=== PATIENT | male | born 1945 | race Caucasian/White ===

== ENCOUNTER 2021-04-30 03:39 | Inpatient (IN) | payer MEDICARE ==
[2021-04-30] VITALS (11 sets, daily range): BP systolic 119–159; BP diastolic 59–102
[~2021-04-30] VITALS: Ht 177.8 cm; Wt 93.2 kg
[~2021-04-30 03:39] MED LIST: ASPI-1265 PO; CA C1TAB86 PO; CHOL100046 PO; COLC0.6T72 PO; GABA300C PO; LOP25T PO; MULT-620 PO; SAW1CAPS5 PO
[2021-04-30] MEDS ORDERED: ondansetron 4mg rapidly disintigrating tab PO STA (04:00)
[2021-04-30 04:24] LABS: BASOPHILS # (AUTO) 0.1 X10'3 (0-0.2); BASOPHILS % (AUTO) 0.6 % (0-1); EOSINOPHILS % (AUTO) 0.1 % (0-6); HEMATOCRIT 46.4 % (42.0-52.0); HEMOGLOBIN 15.6 g/dl (14.0-17.9); LYMPHOCYTES # (AUTO) 1.7 X10'3 (1.1-4.8); LYMPHOCYTES % (AUTO) 9.7 % (21-51); MEAN CORPUSCULAR HEMOGLOBIN 30.4 PG (27.0-31.0); MEAN CORPUSCULAR HGB CONC 33.6 g/dL (33.0-36.5); MEAN CORPUSCULAR VOLUME 90.6 FL (78-98); MEAN PLATELET VOLUME 6.5 FL (7.4-10.4); MONOCYTES % (AUTO) 11.4 % (2-12); NEUTROPHILS # (AUTO) 13.9 X10'3 (1.8-7.7); NEUTROPHILS % (AUTO) 78.2 % (42-75); PLATELET COUNT 315 X10'3 (140-440); RED BLOOD COUNT 5.13 X10'6 (4.70-6.10); RED CELL DISTRIBUTION WIDTH 12.7 % (11.5-14.5); WHITE BLOOD COUNT 17.7 X10'3 (4.5-11.0)
[2021-04-30 04:38] LABS: ALANINE AMINOTRANSFERASE 19 U/L (12-78); ALBUMIN 3.5 G/DL (3.4-5.0); ALBUMIN/GLOBULIN RATIO 0.8 (1.1-1.5); ALKALINE PHOSPHATASE 76 IU/L (46-116); AMYLASE 30 U/L (25-115); ANION GAP 10 (8-16); BILIRUBIN,TOTAL 1.5 MG/DL (0.1-1.0); BLOOD UREA NITROGEN 12 MG/DL (7-18); BUN/CREATININE RATIO 12.8 (5.4-32.0); CALCIUM 8.8 MG/DL (8.5-10.1); CHLORIDE 99 MMOL/L (99-107); CREATININE 0.94 MG/DL (0.60-1.10); GLUCOSE 147 MG/DL (70-104); LIPASE 63 U/L (73-393); SODIUM 136 MMOL/L (135-145); TOTAL CARBON DIOXIDE 27.5 MMOL/L (24-32); TOTAL PROTEIN 7.8 G/DL (6.4-8.2); eGFR 78 ML/MIN
[2021-04-30 04:51] LABS: ASPARTATE AMINO TRANSFERASE 19 U/L (10-37)
[2021-04-30 05:00] LABS: POTASSIUM 3.9 MMOL/L (3.5-5.1)
[2021-04-30] MEDS ORDERED: iohexol 300mg/ml 100ml inj. ONE (05:30)
[2021-04-30] MEDS ORDERED: piperacillin/tazo 3.375gm/50ml 50 ML IV ONE (05:30)
[2021-04-30] MEDS ORDERED: normal saline 1000ml 1,000 ML IV ONE ×2 (05:30→08:40)
[2021-04-30] MEDS ORDERED: normal saline 1000ML IV soln IVB ONE ×2 (05:30→08:50)
[2021-04-30 05:49] LABS: CLARITY,URINE CLEAR (Clear); COLOR,URINE YELLOW (Yellow); GLUCOSE, URINE NEGATIVE (Neg); KETONES,URINE NEGATIVE (Neg); LEUKOCYTE ESTERASE ,URINE NEGATIVE (Neg); NITRITES, URINE NEGATIVE (Neg); OCCULT BLOOD,URINE TRACE-INTACT (Neg); PROTEIN,URINE NEGATIVE (Neg); UA COLLECTION TYPE URINAL
[2021-04-30 05:54] LABS: BACTERIA,URINE NONE SEEN /HPF (Neg); SQUAMOUS EPITHELIAL CELL,UR FEW /LPF (FEW); WBC,URINE 0-4 /HPF (0-4)
[2021-04-30] MEDS: diatr meglu/diatrizoate 30ml oral sol.-(3 dose) bottle PO SCH ×3 (05:54→06:55)
--- NOTE | 2021-04-30 06:04 | NUR ---
patient vomited gastrografin 5 min after he consumed it. calling ct scan per dr. jackson to let them know to go ahead and do the scan without gastrografin.
[2021-04-30] MEDS ORDERED: acetaminophen 325mg tablet PO PRN (08:15)
[2021-04-30] MEDS ORDERED: potassium Cl 20 mEq SR tablet PO PRN ×2 (08:15)
[2021-04-30] MEDS ORDERED: magnesium 4gm in 100ml NS 100 ML IV PRN (08:15)
[2021-04-30] MEDS ORDERED: magnesium 2GM in 50ml NS 50 ML IV PRN (08:15)
[2021-04-30] MEDS ORDERED: potassium Cl 40MEQ/1/2NS 520ml 520 ML IV PRN ×2 (08:15)
[2021-04-30] MEDS: normal saline 1000ml 1,000 ML IV SCH ×2 (08:15→20:50)
[2021-04-30] MEDS ORDERED: magnesium Cl slow-release 64mg tablet PO PRN (08:15)
[2021-04-30] MEDS ORDERED: morphine 2 MG/ML inj. syringe IV PRN ×4 (08:15→14:15)
[2021-04-30] MEDS: metroNIDAZOLE-Flagyl 500mg/NS 100 ML IV SCH ×2 (09:38→16:43)
[2021-04-30] MEDS ORDERED: ondansetron/PF 4mg/2ml inj IV ONE (09:45)
[2021-04-30] MEDS: CefTRIAXone/D5W-Rocephin 1gm 50 ML IV SCH (10:56)
[2021-04-30] MEDS ORDERED: labetalol 20mg/4ml (5mg/ml) syringe IV PRN ×2 (11:05→14:15)
[2021-04-30] MEDS ORDERED: hydrALAZINE 20mg/ml inj. IV PRN ×2 (11:05→14:15)
[2021-04-30] MEDS ORDERED: acetaminophen 1,000mg/100ml IV 100 ML IV PRN ×2 (11:05→14:15)
[2021-04-30] MEDS ORDERED: ringers solution, lacted 1,000 ML IV SCH ×2 (11:05→14:15)
[2021-04-30] MEDS ORDERED: proCHLORperazine 10 MG/2 ml inj IV PRN ×2 (11:05→14:15)
[2021-04-30] MEDS ORDERED: morphine 4 MG/ML inj SYRINge IV PRN ×2 (11:05→14:15)
[2021-04-30] MEDS ORDERED: ondansetron/PF 4mg/2ml inj IV PRN ×2 (11:05→14:15)
[2021-04-30] MEDS ORDERED: meperidine/PF 25mg/ml syringe IV PRN ×6 (11:05→14:15)
[2021-04-30] MEDS ORDERED: BUPIVAcaine/PF 2.5mg/ml (0.25%) 10ml vial ONE (11:12)
[2021-04-30] MEDS ORDERED: famotidine/PF 10 mg/ml inj IV ONE (11:24)
[2021-04-30] MEDS ORDERED: fentaNYL /PF 50mcg/ml 5ml ampule ONE (13:33)
[2021-04-30] MEDS ORDERED: sevoflurane 250ml liquid IH ONE (13:37)
[2021-04-30] MEDS ORDERED: propofol inj 20 ML IV ONE (13:59)
[2021-04-30] MEDS ORDERED: rocuronium 10mg/ml inj IV ONE (13:59)
[2021-04-30] MEDS ORDERED: ceFOXitin 1000 MG inj ONE ×2 (13:59)
[2021-04-30] MEDS ORDERED: LIDOcaine 2% (20mg/ml) 5ml vial ONE (13:59)
[2021-04-30] MEDS ORDERED: ondansetron/PF 4mg/2ml inj ONE (14:15)
[2021-04-30] MEDS ORDERED: dexamethasone sod phosphate 4mg/ml inj. ONE (14:15)
[2021-04-30] MEDS ORDERED: glycopyrrolate 0.2mg/ml inj ONE (14:38)
[2021-04-30] MEDS ORDERED: neostigmine methylsulfate 1 MG/ML 10ml vial ONE (14:38)
--- NOTE | 2021-04-30 14:55 | NUR ---
Received from OR via BED, accompanied by Anesthesiologist CELINE and report given by Anesthesiolgist. PT MOANING AND THRASHING IN BED. DENIES PAIN OR NAUSEA. APPEARS CONFUSED. VSS. 3 ABD TROCAR SITES PERNELL WITH ANTONIA AND DERMABOND. NO REDNESS OR DRAINAGE. SCDS ON. WILL CONTINUE TO MONITOR AND MEDICATE NEEDED.
--- NOTE | 2021-04-30 15:46 | NUR ---
Received report from AVIVA Montero. Awaiting patient arrival to room 4022A.
--- NOTE | 2021-04-30 16:15 | NUR ---
Report called to receiving nurse. Transferred via BED Belongings WITH PT . VSS. PT MEDICATED FOR PAIN WITH MORPHINE AND DEMEROL. ALSO GIVEN 1 GM OF IV TYLENOL. PAIN LEVEL MUCH BETTER AT TIME OF TRANSFER, PT RESTING QUIETLY. NAUSEA WAS TREATED WITH ZOFRAN AND RESOLVED. TOLERATING ICE CHIPS. MENTATION HAS CLEARED. PT IS ALERT AND ORIENTED, CALM. TRANSFERRED TO ORTHO FLOOR IN STABLE CONDITION. Special Issues communicated to receiving nurse.
--- NOTE | 2021-04-30 16:25 | NUR ---
Received patient to room 4022A via bed accompanied by x2 staff. Patient is drowsy but easily awakens to voice. No complaints of pain or discomfort at this time. Patient post op vitals initiated, vss. x3 lap sites with dermabond PERNELL CDI. Oriented patient to room and call light. Call light placed within reach, bed low and locked, scds on. Kylah CHICAS notifying patient's arrival to room.
[2021-04-30] MEDS: HYDROcodone/acetaminophen 5mg/325mg tablet PO PRN ×2 (17:28→21:19)
--- NOTE | 2021-04-30 18:25 | NUR ---
Problems reprioritized. Patient report given, questions answered & plan of care reviewed with Julianna Silva RN.
--- NOTE | 2021-04-30 18:52 | NUR ---
Patient in room ORTHO 4022. I have received report from AVIVA Dan and had the opportunity to ask questions and assume patient care.
[2021-04-30] MEDS: K and/or MAG REPLACEMENT MC SCH (19:29)
--- NOTE | 2021-04-30 23:00 | NUR ---
DR KILPATRICK CALLED TO CHECK ON PT. I TOLD HIM NAUSEA IS CONTROLLED AND RESTING. DR KILPATRICK CONFIRMING IF I GAVE 500CC BOLUS. AT THAT MOMENT I HAVEN'T STARTED SO I TOLD PT'S PBNP WAS HIGH. STILL WANTED FLUID BOLUS. ALSO PT IS HAVING HARD TIME URINATING. HE PRETEND TO PEE AND HE THOUGHT HE PEED. BUT URINAL WAS EMPTY. MACIAS CATHETER WAS INSERTED WITHOUT DIFFICULTIES AND HAD DARK BROWN URINE. Addendum: 05/02/21 at 0544 by Soheila Allison RN RWONG TIME. IT WAS 05/01 2300
[2021-05-01] MEDS: metroNIDAZOLE-Flagyl 500mg/NS 100 ML IV SCH ×2 (00:10→07:52)
[2021-05-01] MEDS: HYDROcodone/acetaminophen 5mg/325mg tablet PO PRN ×2 (01:29→09:22)
[2021-05-01 02:00] VITALS: BP 126/72
[2021-05-01] MEDS ORDERED: GABA600T13 PO (02:26)
[2021-05-01] MEDS ORDERED: ALEN70TA37 PO (02:26)
[2021-05-01] MEDS ORDERED: FLO0.4C PO (02:26)
[2021-05-01 05:57] LABS: BASOPHILS % (AUTO) 0.1 % (0-1); EOSINOPHILS % (AUTO) 0 % (0-6); HEMATOCRIT 41.1 % (42.0-52.0); HEMOGLOBIN 13.5 g/dl (14.0-17.9); LYMPHOCYTES # (AUTO) 0.9 X10'3 (1.1-4.8); LYMPHOCYTES % (AUTO) 5.9 % (21-51); MEAN CORPUSCULAR HEMOGLOBIN 30.3 PG (27.0-31.0); MEAN CORPUSCULAR HGB CONC 32.9 g/dL (33.0-36.5); MONOCYTES # (AUTO) 1.8 X10'3 (0-0.9); MONOCYTES % (AUTO) 12.2 % (2-12); NEUTROPHILS # (AUTO) 12.3 X10'3 (1.8-7.7); NEUTROPHILS % (AUTO) 81.8 % (42-75); PLATELET COUNT 229 X10'3 (140-440); RED BLOOD COUNT 4.46 X10'6 (4.70-6.10); RED CELL DISTRIBUTION WIDTH 13.3 % (11.5-14.5)
[2021-05-01 06:00] VITALS: BP 106/65
[2021-05-01 06:05] LABS: ALBUMIN 2.5 G/DL (3.4-5.0); ANION GAP 8 (8-16); BLOOD UREA NITROGEN 16 MG/DL (7-18); BUN/CREATININE RATIO 12.5 (5.4-32.0); CALCIUM 7.7 MG/DL (8.5-10.1); CHLORIDE 107 MMOL/L (99-107); CREATININE 1.28 MG/DL (0.60-1.10); GLUCOSE 153 MG/DL (70-104); MAGNESIUM 1.8 MG/DL (1.5-2.4); POTASSIUM 4.2 MMOL/L (3.5-5.1); SODIUM 142 MMOL/L (135-145); TOTAL CARBON DIOXIDE 26.9 MMOL/L (24-32); eGFR 54 ML/MIN
--- NOTE | 2021-05-01 06:26 | NUR ---
Problems reprioritized. Patient report given, questions answered & plan of care reviewed with AVIVA Salomon.
--- NOTE | 2021-05-01 06:45 | NUR ---
Patient in room ORTHO 4022. I have received report from Shira CHICAS and had the opportunity to ask questions and assume patient care.
[2021-05-01] MEDS: CefTRIAXone/D5W-Rocephin 1gm 50 ML IV SCH (07:52)
[2021-05-01] MEDS: K and/or MAG REPLACEMENT MC SCH ×2 (08:00→20:00)
[2021-05-01 09:16] LABS: % FREE PSA 23.3 % (.); PSA, FREE 0.42 ng/mL
[2021-05-01 10:00] VITALS: BP 126/78
[2021-05-01] MEDS: normal saline 1000ml 1,000 ML IV SCH ×3 (10:43→23:47)
--- NOTE | 2021-05-01 10:58 | NUR ---
PAGER ID: [phone] MESSAGE: Erick Chacko#[phone]- Pt is nauseated and all of his nausea medication were DC'ed. Can we please get them back on. Thank you. Mera Natarajan [phone]
[2021-05-01] MEDS ORDERED: ondansetron/PF 4mg/2ml inj IV PRN ×3 (11:00→20:10)
[2021-05-01] MEDS ORDERED: non-formulary drug (Alendronate Sodium 1 TAB) PO SCH (11:40)
[2021-05-01] MEDS: tamsulosin 0.4mg capsule PO SCH (12:13)
[2021-05-01] MEDS: aspirin 81mg tab.chew PO SCH (12:13)
[2021-05-01] MEDS: gabapentin 300mg capsule PO SCH ×2 (12:14→21:00)
[2021-05-01 13:57] LABS: ALANINE AMINOTRANSFERASE 62 U/L (12-78); ALBUMIN 2.5 G/DL (3.4-5.0); ALBUMIN/GLOBULIN RATIO 0.6 (1.1-1.5); ALKALINE PHOSPHATASE 64 IU/L (46-116); ANION GAP 10 (8-16); ASPARTATE AMINO TRANSFERASE 60 U/L (10-37); BLOOD UREA NITROGEN 19 MG/DL (7-18); BUN/CREATININE RATIO 14.8 (5.4-32.0); CALCIUM 7.7 MG/DL (8.5-10.1); CHLORIDE 104 MMOL/L (99-107); CREATININE 1.28 MG/DL (0.60-1.10); GLUCOSE 132 MG/DL (70-104); SODIUM 140 MMOL/L (135-145); TOTAL CARBON DIOXIDE 26.3 MMOL/L (24-32); TOTAL PROTEIN 6.8 G/DL (6.4-8.2); eGFR 54 ML/MIN
[2021-05-01 13:57] LABS: BILIRUBIN,TOTAL 1.4 MG/DL (0.1-1.0)
[2021-05-01 18:00] VITALS: BP 111/73
--- NOTE | 2021-05-01 18:26 | NUR ---
Problems reprioritized. Patient report given, questions answered & plan of care reviewed with Soheila CHICAS.
--- NOTE | 2021-05-01 18:51 | NUR ---
Patient in room ORTHO 4022. I have received report from AVIVA ANDINO and had the opportunity to ask questions and assume patient care.
[2021-05-01] MEDS: lactobacillus rhamnosus 10,000 MMU CELLS/CAPSULE PO SCH (20:00)
[2021-05-01] MEDS ORDERED: diphenhydrAMINE 50 mg/ml inj IV PRN (20:10)
[2021-05-01] MEDS ORDERED: acetaminophen 1,000mg/100ml IV 100 ML IV ONE (20:10)
[2021-05-01] MEDS: LORazepam 2 mg/ml vial IV PRN (20:42)
[2021-05-01] MEDS: metoprolol tartrate 25mg tablet PO SCH (20:48)
[2021-05-01 20:53] LABS: D-DIMER 4.21 MG/L FEU (0-0.50)
[2021-05-01 20:57] LABS: LIPASE < 50 U/L (73-393); PHOSPHORUS 2.4 MG/DL (2.3-4.5)
--- NOTE | 2021-05-01 21:00 | NUR ---
PT IS VERY UNCOMFORTABLE DUE TO NAUSEA/ABD DISCOMFORT. ACCORDING TO PT, NAUSEA HE HAD BEEN RECEIVING NOT HELPING. HR 120-130S. EARLIER PT'S WAS CALLING DR. RODRIGUEZ AND SHE GAVE ME THE PHONE. DR. RODRIGUEZ ORDERED EKG. EKG WAS SHOWING AFLUTTER. PT'S STATED THAT PT TAKES METOPROLOL FOR TACHYCARDIA. WHEN I ASKED IF PT HAD AFIB/AFLUTTER, PT AND PT'S WEREN'T SURE. EKG WAS SHOWN TO DR. KILPATRICK. DR KILPATRICK ALSO ORDERED TO INCREASE ZOFRAN TO 8MG. BENEDRYL 25MG PRN, ATIVAN 1MG, IV, PRN. IF PAIN, TYLENOL 1G PRN (PT DENIES PAIN AND REFUSES NARCOTIC), CXR, LABS(TROP, PBNP, LIPASE, PHOS, D-DIMER). FLUID BOLUS 500CC. AND ACCURATE URINE OUTPUT:MACIAS IF NEEDED.
[2021-05-01 22:00] VITALS: BP 140/93
[2021-05-01 23:30] VITALS: BP 122/66
[2021-05-02] VITALS (9 sets, daily range): BP systolic 112–149; BP diastolic 65–87
[2021-05-02] MEDS ORDERED: normal saline 500ml IV soln 500 ML IV ONE (00:55)
[2021-05-02 01:38] LABS: UA COLLECTION TYPE FOLEY CATH
[2021-05-02 01:39] LABS: CLARITY,URINE CLOUDY (Clear); COLOR,URINE BROWN (Yellow)
[2021-05-02 01:48] LABS: BACTERIA,URINE 2+ /HPF (Neg); MUCUS STRANDS FEW /LPF (Neg); RBC,URINE TNTC /HPF (0-2); SQUAMOUS EPITHELIAL CELL,UR FEW /LPF (FEW)
--- NOTE | 2021-05-02 02:42 | NUR ---
NOTIFIED DR. KILPATRICK OF HIGH D-DIMER 4.21. RECEIVED VQ SCAN ORDER FOR AM.
--- NOTE | 2021-05-02 06:26 | NUR ---
Problems reprioritized. Patient report given, questions answered & plan of care reviewed with AVIVA HERNÁNDEZ.
[2021-05-02 06:35] LABS: ALANINE AMINOTRANSFERASE 58 U/L (12-78); ALBUMIN 2.3 G/DL (3.4-5.0); ALBUMIN/GLOBULIN RATIO 0.6 (1.1-1.5); ALKALINE PHOSPHATASE 67 IU/L (46-116); ANION GAP 8 (8-16); ASPARTATE AMINO TRANSFERASE 44 U/L (10-37); BILIRUBIN,TOTAL 0.7 MG/DL (0.1-1.0); BLOOD UREA NITROGEN 22 MG/DL (7-18); BUN/CREATININE RATIO 19.5 (5.4-32.0); CALCIUM 7.7 MG/DL (8.5-10.1); CHLORIDE 106 MMOL/L (99-107); CREATININE 1.13 MG/DL (0.60-1.10); GLUCOSE 111 MG/DL (70-104); MAGNESIUM 2.2 MG/DL (1.5-2.4); POTASSIUM 3.8 MMOL/L (3.5-5.1); SODIUM 141 MMOL/L (135-145); TOTAL PROTEIN 6.3 G/DL (6.4-8.2); TROPONIN I < 0.04 NG/ML (0.0-0.05); eGFR 63 ML/MIN
[2021-05-02 06:39] LABS: BASOPHILS % (AUTO) 0.2 % (0-1); EOSINOPHILS % (AUTO) 0 % (0-6); HEMATOCRIT 37.1 % (42.0-52.0); HEMOGLOBIN 12.4 g/dl (14.0-17.9); LYMPHOCYTES # (AUTO) 1.3 X10'3 (1.1-4.8); LYMPHOCYTES % (AUTO) 8.1 % (21-51); MEAN CORPUSCULAR HEMOGLOBIN 30.4 PG (27.0-31.0); MEAN CORPUSCULAR HGB CONC 33.3 g/dL (33.0-36.5); MEAN CORPUSCULAR VOLUME 91.4 FL (78-98); MEAN PLATELET VOLUME 7.3 FL (7.4-10.4); MONOCYTES # (AUTO) 1.8 X10'3 (0-0.9); MONOCYTES % (AUTO) 11.3 % (2-12); NEUTROPHILS # (AUTO) 12.5 X10'3 (1.8-7.7); NEUTROPHILS % (AUTO) 80.4 % (42-75); PLATELET COUNT 256 X10'3 (140-440); RED BLOOD COUNT 4.07 X10'6 (4.70-6.10); RED CELL DISTRIBUTION WIDTH 13.4 % (11.5-14.5); WHITE BLOOD COUNT 15.6 X10'3 (4.5-11.0)
--- NOTE | 2021-05-02 07:31 | NUR ---
When I made rounds this am, patient's oxygen was off, patient O2 sat on room air was 85% and lungs sound was wheezing, patient stated he is short of breath. I immediately placed oxygen nasal cannula back @ 3lpm/nc. Patient's O2 sat at 3lpm/nc was 96%.
[2021-05-02] MEDS: aspirin 81mg tab.chew PO SCH (07:34)
[2021-05-02] MEDS: gabapentin 300mg capsule PO SCH ×3 (07:34→21:00)
[2021-05-02] MEDS: lactobacillus rhamnosus 10,000 MMU CELLS/CAPSULE PO SCH ×2 (07:35→21:18)
[2021-05-02] MEDS: tamsulosin 0.4mg capsule PO SCH (07:35)
[2021-05-02] MEDS: metoprolol tartrate 25mg tablet PO SCH ×2 (07:35→21:18)
[2021-05-02] MEDS: K and/or MAG REPLACEMENT MC SCH ×2 (08:00→20:00)
--- NOTE | 2021-05-02 08:00 | NUR ---
Paged Dr. Gómez PAGER ID: [phone] MESSAGE: Ortho/Neuro Della RN ext [phone]. RE" Erick Chacko. Patient has shortness of breath this am 85% on room, he is now on 3lpm/nc. He is also wheezing. Dr. Talavera ordered bolus last night. Dr. Talavera ordered VQ Scan due to elevated D-dimer
--- NOTE | 2021-05-02 09:38 | NUR ---
Paged Dr. Gómez PAGER ID: [phone] MESSAGE: Orttho/Ishan Hull RN ext [phone]. RE: Homes, Suarez. Patient still very wheezy at this time. Do you want RT to evaluate for breathing treatment? Also HR converted back to afib 120's-130's. He already got Metoprolol 25 mg this am
[2021-05-02] MEDS: CefTRIAXone/D5W-Rocephin 1gm 50 ML IV SCH (09:53)
[2021-05-02] MEDS: HYDROcodone/acetaminophen 5mg/325mg tablet PO PRN ×2 (10:03→22:52)
[2021-05-02] MEDS ORDERED: diltiazem 30mg tablet PO PRN (10:15)
[2021-05-02] MEDS ORDERED: diltiazem 30mg tablet PO ONE (10:15)
--- NOTE | 2021-05-02 10:25 | NUR ---
Paged Respiratory therapist Ortho/Neuro Sofhia ext [phone]. RE: Erick Chacko. Dr. Gómez requesting RT to eval this patient and to give the first dose of ordered breathing treatment. Thanks
[2021-05-02 11:38] LABS: ABG BASE EXCESS 1.2 mmol/L (-2.0-2.0); ABG HCO3 26.8 mmol/L (22.0-26.0); ABG OXYGEN SATURATION 94.6 % (94-97); ABG PCO2 (T) 46.4 mmHg (35.0-48.0); ABG PO2 (T) 70.2 mmHg (75.0-100.0); ALLEN'S TEST POSITIVE; FCOHb 0.5 % (0.0-3.9); FLOW 3 L/min; FMetHb 0.2 % (0.0-1.5); FO2Hb 93.9 % (94-97); TOTAL HEMOGLOBIN 13.1 G/dl (14.0-18.0)
[2021-05-02] MEDS: ipratropium/albuterol 3ml nebule NEB SCH ×3 (11:46→22:43)
--- NOTE | 2021-05-02 12:31 | NUR ---
Patient currently on salter/high flow nasal cannula at 10 lpm as per RT's intervention. Awaiting for assigned room number from PCU. Patient and at bedside aware of the transfer order.
[2021-05-02] MEDS ORDERED: PERFLUTREN PROTEIN-A MICROSPHR (Optison) 0.22 MG/ML 3ML VIAL IV ONE (12:55)
--- NOTE | 2021-05-02 13:42 | NUR ---
Paged compounding technician regarding order for echocardiogram today
--- NOTE | 2021-05-02 13:47 | NUR ---
Patient sleeping comfortably at this time, unable to give PO Gabapentin
--- NOTE | 2021-05-02 14:20 | NUR ---
Patient in room ORTHO 4022. I have received report from Celia Patel had the opportunity to ask questions and assume patient care.
--- NOTE | 2021-05-02 14:55 | NUR ---
Patient was transported to PCU room 3025B with oxygen high flow nasal cannula at 10 lpm. Patient's followed the patient into the new room. Patient's confirmed to me that she took home all patient's belongings already. I communicated this to the charge nurse Thierno.
[2021-05-02] MEDS ORDERED: ipratropium/albuterol 3ml nebule NEB PRN (15:25)
[2021-05-02] MEDS ORDERED: amiodarone 150mg/dext, iso-os 100 ML IV ONE (16:15)
[2021-05-02] MEDS ORDERED: POTASSIUM BICARB 20meq eff tab 20 MEQ TABLET.EFF PO ONE (16:15)
[2021-05-02] MEDS: amiodarone/D5 360MG/200ML BAG 200 ML IV SCH ×2 (16:54→23:30)
--- NOTE | 2021-05-02 18:05 | NUR ---
Problems reprioritized. Patient report given, questions answered & plan of care reviewed with Anny RN. Patient resting in bed in n o acute distress with at bedside.
[2021-05-03] MEDS: LORazepam 2 mg/ml vial IV PRN ×3 (02:22→21:28)
[2021-05-03] MEDS: ipratropium/albuterol 3ml nebule NEB SCH ×4 (05:23→20:07)
--- NOTE | 2021-05-03 06:21 | NUR ---
Problems reprioritized. Patient report given, questions answered & plan of care reviewed with Chapin.
[2021-05-03 06:27] LABS: BASOPHILS % (AUTO) 0.1 % (0-1); EOSINOPHILS # (AUTO) 0.1 X10'3 (0-0.9); EOSINOPHILS % (AUTO) 0.8 % (0-6); HEMATOCRIT 38.8 % (42.0-52.0); HEMOGLOBIN 12.7 g/dl (14.0-17.9); LYMPHOCYTES # (AUTO) 1.4 X10'3 (1.1-4.8); LYMPHOCYTES % (AUTO) 10.8 % (21-51); MEAN CORPUSCULAR HEMOGLOBIN 30.5 PG (27.0-31.0); MEAN CORPUSCULAR HGB CONC 32.8 g/dL (33.0-36.5); MEAN CORPUSCULAR VOLUME 92.8 FL (78-98); MEAN PLATELET VOLUME 7.4 FL (7.4-10.4); MONOCYTES # (AUTO) 1.5 X10'3 (0-0.9); MONOCYTES % (AUTO) 12.1 % (2-12); NEUTROPHILS # (AUTO) 9.7 X10'3 (1.8-7.7); NEUTROPHILS % (AUTO) 76.2 % (42-75); PLATELET COUNT 297 X10'3 (140-440); RED BLOOD COUNT 4.18 X10'6 (4.70-6.10); RED CELL DISTRIBUTION WIDTH 13.4 % (11.5-14.5); WHITE BLOOD COUNT 12.7 X10'3 (4.5-11.0)
--- NOTE | 2021-05-03 06:47 | NUR ---
Patient in room PCU 3025. I have received report from Anny CHICAS and had the opportunity to ask questions and assume patient care.
[2021-05-03 06:50] LABS: ALBUMIN 2.1 G/DL (3.4-5.0); ANION GAP 5 (8-16); BLOOD UREA NITROGEN 17 MG/DL (7-18); BUN/CREATININE RATIO 17.7 (5.4-32.0); CALCIUM 7.5 MG/DL (8.5-10.1); CHLORIDE 105 MMOL/L (99-107); CREATININE 0.96 MG/DL (0.60-1.10); GLUCOSE 125 MG/DL (70-104); MAGNESIUM 2.4 MG/DL (1.5-2.4); POTASSIUM 3.7 MMOL/L (3.5-5.1); SODIUM 141 MMOL/L (135-145); TOTAL CARBON DIOXIDE 31.1 MMOL/L (24-32); eGFR 76 ML/MIN
[2021-05-03 07:00] VITALS: BP 157/88
[2021-05-03] MEDS ORDERED: [UNRECOGNIZED DRUG - OTHER] PO SCH (08:00)
[2021-05-03] MEDS ORDERED: ZINC PICOLINATE PO SCH (08:00)
[2021-05-03] MEDS: K and/or MAG REPLACEMENT MC SCH ×2 (08:00→20:00)
[2021-05-03] MEDS: amiodarone/D5 360MG/200ML BAG 200 ML IV SCH ×2 (09:13→11:57)
[2021-05-03] MEDS: aspirin 81mg tab.chew PO SCH (09:13)
[2021-05-03] MEDS: lactobacillus rhamnosus 10,000 MMU CELLS/CAPSULE PO SCH ×2 (09:13→20:00)
[2021-05-03] MEDS: tamsulosin 0.4mg capsule PO SCH (09:14)
[2021-05-03] MEDS: gabapentin 300mg capsule PO SCH ×3 (09:14→20:00)
[2021-05-03] MEDS: metoprolol tartrate 25mg tablet PO SCH ×2 (09:14→21:30)
[2021-05-03] MEDS: calcium carbonate/vitamin D3 tablet PO SCH (09:15)
[2021-05-03] MEDS: cholecalciferol (vitamin D3) 1,000 unit (25mcg) tablet PO SCH (09:15)
[2021-05-03] MEDS: multivitamins, therapeutics tablet PO SCH (09:15)
[2021-05-03] MEDS: HYDROcodone/acetaminophen 5mg/325mg tablet PO PRN ×2 (09:16→21:29)
[2021-05-03] MEDS: CefTRIAXone/D5W-Rocephin 1gm 50 ML IV SCH (09:17)
[2021-05-03] MEDS ORDERED: POTASSIUM BICARB 20meq eff tab 20 MEQ TABLET.EFF PO ONE (10:50)
[2021-05-03 11:00] VITALS: BP 132/87
--- NOTE | 2021-05-03 11:56 | NUR ---
page to PICC RN [id number] Ginna. Patient needs 2nd PIV amio and antibiotics don't play together. Ludmila [phone]
[2021-05-03] MEDS: ondansetron 4mg rapidly disintigrating tab PO PRN ×2 (14:30→21:31)
[2021-05-03 15:00] VITALS: BP 148/105
[2021-05-03] MEDS ORDERED: digoxin 250mcg/ml 2ml ampule IV ONE (15:55)
--- NOTE | 2021-05-03 17:24 | NUR ---
Dr. Whyte gave me verbal orders to push the digoxin already ordered, give tonight's PO dose of amio now , and to give 25 mg PO of metoprolol now . He wants me to keep the amio gtt running and if the patient's HR significantly drops than to DC the amio gtt.
[2021-05-03] MEDS ORDERED: metoprolol tartrate 25mg tablet PO ONE (17:25)
[2021-05-03] MEDS: amiodarone 200mg tablet PO SCH ×2 (17:52→21:30)
[2021-05-03 18:00] VITALS: BP 135/70
--- NOTE | 2021-05-03 18:38 | NUR ---
Problems reprioritized. Patient report given, questions answered & plan of care reviewed with Anny CHICAS.
[2021-05-03] MEDS ORDERED: amiodarone 200mg tablet PO SCH (21:00)
[2021-05-03 22:00] VITALS: BP 176/76
[2021-05-03 23:00] VITALS: BP 134/86
[2021-05-04] MEDS: ipratropium/albuterol 3ml nebule NEB SCH ×4 (02:38→20:39)
[2021-05-04 06:05] LABS: BASOPHILS % (AUTO) 0.2 % (0-1); EOSINOPHILS # (AUTO) 0.2 X10'3 (0-0.9); EOSINOPHILS % (AUTO) 1.8 % (0-6); HEMATOCRIT 39.8 % (42.0-52.0); LYMPHOCYTES # (AUTO) 1.3 X10'3 (1.1-4.8); LYMPHOCYTES % (AUTO) 10.1 % (21-51); MEAN CORPUSCULAR HEMOGLOBIN 30.3 PG (27.0-31.0); MEAN CORPUSCULAR HGB CONC 32.7 g/dL (33.0-36.5); MEAN CORPUSCULAR VOLUME 92.7 FL (78-98); MEAN PLATELET VOLUME 7.2 FL (7.4-10.4); MONOCYTES # (AUTO) 1.8 X10'3 (0-0.9); MONOCYTES % (AUTO) 14.4 % (2-12); NEUTROPHILS # (AUTO) 9.3 X10'3 (1.8-7.7); NEUTROPHILS % (AUTO) 73.5 % (42-75); PLATELET COUNT 324 X10'3 (140-440); RED BLOOD COUNT 4.29 X10'6 (4.70-6.10); RED CELL DISTRIBUTION WIDTH 13.4 % (11.5-14.5); WHITE BLOOD COUNT 12.6 X10'3 (4.5-11.0)
[2021-05-04 06:06] LABS: ALBUMIN 1.9 G/DL (3.4-5.0); ANION GAP 5 (8-16); BLOOD UREA NITROGEN 16 MG/DL (7-18); BUN/CREATININE RATIO 21.3 (5.4-32.0); CALCIUM 8.2 MG/DL (8.5-10.1); CHLORIDE 105 MMOL/L (99-107); CREATININE 0.75 MG/DL (0.60-1.10); GLUCOSE 124 MG/DL (70-104); MAGNESIUM 2.2 MG/DL (1.5-2.4); POTASSIUM 4.3 MMOL/L (3.5-5.1); SODIUM 140 MMOL/L (135-145); TOTAL CARBON DIOXIDE 30.1 MMOL/L (24-32); eGFR > 90 ML/MIN
--- NOTE | 2021-05-04 06:28 | NUR ---
Patient in room PCU 3025. I have received report from AVIVA Mccormick and had the opportunity to ask questions and assume patient care.
[2021-05-04 07:00] VITALS: BP 127/82
[2021-05-04] MEDS: K and/or MAG REPLACEMENT MC SCH ×2 (08:00→20:00)
--- NOTE | 2021-05-04 08:07 | NUR ---
Paged EKG Re [id number] Erick Chacko Pt needs EKG please. Thanks Erma CHEN
[2021-05-04] MEDS: amiodarone 200mg tablet PO SCH ×3 (08:35→21:08)
[2021-05-04] MEDS: aspirin 81mg tab.chew PO SCH (08:35)
[2021-05-04] MEDS: gabapentin 300mg capsule PO SCH ×2 (08:35→19:15)
[2021-05-04] MEDS: calcium carbonate/vitamin D3 tablet PO SCH (08:35)
[2021-05-04] MEDS: metoprolol tartrate 25mg tablet PO SCH ×2 (08:35→19:14)
[2021-05-04] MEDS: cholecalciferol (vitamin D3) 1,000 unit (25mcg) tablet PO SCH (08:35)
[2021-05-04] MEDS: CefTRIAXone/D5W-Rocephin 1gm 50 ML IV SCH (08:35)
[2021-05-04] MEDS: lactobacillus rhamnosus 10,000 MMU CELLS/CAPSULE PO SCH ×2 (08:35→19:15)
[2021-05-04] MEDS: tamsulosin 0.4mg capsule PO SCH (08:35)
[2021-05-04] MEDS: multivitamins, therapeutics tablet PO SCH (08:35)
[2021-05-04] MEDS ORDERED: furosemide 40mg/4ml inj IV ONE ×2 (08:45→12:10)
[2021-05-04] MEDS: LORazepam 2 mg/ml vial IV PRN (08:57)
[2021-05-04 11:00] VITALS: BP 134/73
[2021-05-04 11:06] VITALS: BP 111/78
[2021-05-04] MEDS: levoFLOXACIN-Levaquin 500mg/D5 100 ML IV SCH (11:09)
--- NOTE | 2021-05-04 13:06 | NUR ---
Initial: Pt admitted w/ abdominal pain and underwent cholecystectomy 04/30 per EMR. Pt currently eating 25-50% of meals on Regular diet not meeting needs. Pt states that he eats at different times when at home and the hospital meal schedule is "throwing him off," additionally, his appetite is low but is coming back. Pt states that he likes ice cream, though no other food preferences voiced. Will honor preferences. Pt states he had a small BM today but no significant BM since 04/30, though he is passing gas. Will continue to monitor PO trends and make recommendations as appropriate. Recs: 1. Continue Regular diet as tolerated 2. Bowel care per rx 3. Weekly wts Addendum: 05/04/21 at [address] by [address] Amended: Links added.
[2021-05-04 15:00] VITALS: BP 140/77
[2021-05-04 18:00] VITALS: BP 134/70
--- NOTE | 2021-05-04 18:26 | NUR ---
Problems reprioritized. Patient report given, questions answered & plan of care reviewed with AVIVA Sadler. Pt laying in bed resting comfortably at change of shift. No signs of distress noted, all pt needs met at this time.
[2021-05-04] MEDS ORDERED: digoxin 250mcg (0.25mg) tablet PO ONE (18:55)
[2021-05-04] MEDS ORDERED: furosemide 40mg tablet PO ONE (18:55)
[2021-05-04] MEDS: HYDROcodone/acetaminophen 5mg/325mg tablet PO PRN (19:25)
--- NOTE | 2021-05-04 20:06 | NUR ---
Paged RT. Pt in [id number] Erick Chacko is wheezing and needs a breathing treatment. Thanks! Viktoriya rodriguez [phone]
--- NOTE | 2021-05-04 20:46 | NUR ---
Paged Dr. Talavera. PAGER ID: [phone] MESSAGE: Pt in [id number] Erick Chacko 75 M is asking for anxiety med. Pt has an order for Ativan 1 mg IV PRN, but the pt has no IV access. Can I get Ativan PO order? Thanks!
[2021-05-04] MEDS: LORazepam 1 MG tablet PO PRN (21:08)
[2021-05-04] MEDS: methylPREDNISolone sod succ 125mg/2ml vial IV ONE ×2 (21:08→21:13)
[2021-05-04 22:00] VITALS: BP 128/73
[2021-05-04] MEDS ORDERED: digoxin 250mcg/ml 2ml ampule IV ONE (22:00)
[2021-05-05 02:00] VITALS: BP 110/75
[2021-05-05] MEDS: ipratropium/albuterol 3ml nebule NEB SCH ×4 (02:24→20:25)
[2021-05-05 06:00] LABS: BASOPHILS # (AUTO) 0.1 X10'3 (0-0.2); BASOPHILS % (AUTO) 0.4 % (0-1); EOSINOPHILS # (AUTO) 0.6 X10'3 (0-0.9); EOSINOPHILS % (AUTO) 4.3 % (0-6); HEMATOCRIT 39.3 % (42.0-52.0); HEMOGLOBIN 12.9 g/dl (14.0-17.9); LYMPHOCYTES # (AUTO) 1.9 X10'3 (1.1-4.8); LYMPHOCYTES % (AUTO) 14.7 % (21-51); MEAN CORPUSCULAR HEMOGLOBIN 30.2 PG (27.0-31.0); MEAN CORPUSCULAR HGB CONC 32.9 g/dL (33.0-36.5); MEAN CORPUSCULAR VOLUME 91.9 FL (78-98); MEAN PLATELET VOLUME 6.9 FL (7.4-10.4); MONOCYTES # (AUTO) 1.7 X10'3 (0-0.9); MONOCYTES % (AUTO) 12.6 % (2-12); PLATELET COUNT 345 X10'3 (140-440); RED BLOOD COUNT 4.28 X10'6 (4.70-6.10); RED CELL DISTRIBUTION WIDTH 13.1 % (11.5-14.5); WHITE BLOOD COUNT 13.2 X10'3 (4.5-11.0)
--- NOTE | 2021-05-05 06:10 | NUR ---
Problems reprioritized. Patient report given, questions answered & plan of care reviewed with AVIVA Ritchie.
--- NOTE | 2021-05-05 06:16 | NUR ---
Patient in room PCU 3025. I have received report from AVIVA Sadler and had the opportunity to ask questions and assume patient care.
[2021-05-05 06:17] LABS: ALBUMIN 1.8 G/DL (3.4-5.0); ANION GAP 2 (8-16); BLOOD UREA NITROGEN 16 MG/DL (7-18); BUN/CREATININE RATIO 17.2 (5.4-32.0); CALCIUM 8.3 MG/DL (8.5-10.1); CHLORIDE 102 MMOL/L (99-107); CREATININE 0.93 MG/DL (0.60-1.10); GLUCOSE 113 MG/DL (70-104); MAGNESIUM 1.7 MG/DL (1.5-2.4); POTASSIUM 3.7 MMOL/L (3.5-5.1); SODIUM 140 MMOL/L (135-145); TOTAL CARBON DIOXIDE 36.3 MMOL/L (24-32); eGFR 79 ML/MIN
--- NOTE | 2021-05-05 06:23 | NUR ---
Paged PICC nurse Re Erick Chacko [id number] Pt needs PIV placed MICHAEL. No access, hard stick. 4 attempts unsuccessful. Thanks Erma [phone]
[2021-05-05 07:00] VITALS: BP 129/76
[2021-05-05] MEDS: K and/or MAG REPLACEMENT MC SCH ×2 (08:00→20:00)
[2021-05-05] MEDS: aspirin 81mg tab.chew PO SCH (08:36)
[2021-05-05] MEDS: metoprolol tartrate 25mg tablet PO SCH ×2 (08:38→19:48)
[2021-05-05] MEDS: cholecalciferol (vitamin D3) 1,000 unit (25mcg) tablet PO SCH (08:39)
[2021-05-05] MEDS: amiodarone 200mg tablet PO SCH ×3 (08:40→20:40)
[2021-05-05] MEDS: multivitamins, therapeutics tablet PO SCH (08:40)
[2021-05-05] MEDS: calcium carbonate/vitamin D3 tablet PO SCH (08:40)
[2021-05-05] MEDS: lactobacillus rhamnosus 10,000 MMU CELLS/CAPSULE PO SCH ×2 (08:41→19:43)
[2021-05-05] MEDS: tamsulosin 0.4mg capsule PO SCH (08:41)
[2021-05-05] MEDS: gabapentin 300mg capsule PO SCH ×2 (10:13→19:43)
--- NOTE | 2021-05-05 10:16 | NUR ---
Paged PICC nurse Erick Grady [id number] Per Dr Gómez Pt NEEDS PIV now! Thank you Erma [phone]
[2021-05-05 11:00] VITALS: BP 132/80
[2021-05-05] MEDS ORDERED: methylPREDNISolone sod succ/PF 40mg inj. IV ONE (11:30)
[2021-05-05] MEDS: levoFLOXACIN-Levaquin 500mg/D5 100 ML IV SCH (11:31)
[2021-05-05] MEDS: furosemide 20 MG/2 ML vial IV SCH (11:32)
--- NOTE | 2021-05-05 12:23 | NUR ---
0900 SVN TRIAGED. THERAPIST NOT AVAILABLE
[2021-05-05] MEDS: azithromycin/NS 500mg/250ml 250 ML IV SCH (13:34)
--- NOTE | 2021-05-05 14:16 | NUR ---
O2 Sat at rest on room air:__88_% If below 89%: Recovery O2 Sat at rest on __3_LPM:__93% via nasal cannula (mask/nasal cannula, etc..) No further documentation is necessary. If O2 Sat did not drop below 89% on room air,ambulate patient on room air. O2 Sat while ambulating on room air:___% Recovery O2 Sat while ambulating on ___LPM:___% No further documentation is necessary. If patient does not drop below 89% while ambulating, he/she does not qualify for home O2.
[2021-05-05] MEDS ORDERED: furosemide 40mg/4ml inj IV ONE (14:45)
[2021-05-05] MEDS ORDERED: metoprolol tartrate 25mg tablet PO SCH (14:45)
[2021-05-05] MEDS ORDERED: potassium Cl 20 mEq SR tablet PO STA (14:45)
[2021-05-05 18:00] VITALS: BP 133/90
--- NOTE | 2021-05-05 18:30 | NUR ---
Problems reprioritized. Patient report given, questions answered & plan of care reviewed with AVIVA Sadler Pt laying in bed resting comfortably.
[2021-05-05] MEDS: LORazepam 1 MG tablet PO PRN (19:43)
[2021-05-05] MEDS: HYDROcodone/acetaminophen 5mg/325mg tablet PO PRN (19:44)
[2021-05-05 22:00] VITALS: BP 149/80
--- NOTE | 2021-05-05 22:00 | NUR ---
Pt has just converted to SR from Aflutter
[2021-05-06 02:00] VITALS: BP 135/73
--- NOTE | 2021-05-06 03:28 | NUR ---
Pt's cardiac rhythm is back to Aflutter with HR 108.
--- NOTE | 2021-05-06 06:09 | NUR ---
Problems reprioritized. Patient report given, questions answered & plan of care reviewed with AVIVA Ritchie.
[2021-05-06 07:00] VITALS: BP 150/122
[2021-05-06] MEDS: K and/or MAG REPLACEMENT MC SCH (08:00)
[2021-05-06] MEDS: gabapentin 300mg capsule PO SCH (08:05)
[2021-05-06] MEDS: aspirin 81mg tab.chew PO SCH (08:05)
[2021-05-06] MEDS: multivitamins, therapeutics tablet PO SCH (08:05)
[2021-05-06] MEDS: calcium carbonate/vitamin D3 tablet PO SCH (08:05)
[2021-05-06] MEDS: tamsulosin 0.4mg capsule PO SCH (08:05)
[2021-05-06] MEDS: lactobacillus rhamnosus 10,000 MMU CELLS/CAPSULE PO SCH (08:05)
[2021-05-06] MEDS: amiodarone 200mg tablet PO SCH ×2 (08:05→14:42)
[2021-05-06] MEDS: cholecalciferol (vitamin D3) 1,000 unit (25mcg) tablet PO SCH (08:06)
[2021-05-06] MEDS: furosemide 20 MG/2 ML vial IV SCH (08:06)
[2021-05-06] MEDS: metoprolol tartrate 25mg tablet PO SCH (08:07)
[2021-05-06] MEDS: levoFLOXACIN-Levaquin 500mg/D5 100 ML IV SCH (08:07)
[2021-05-06] MEDS: azithromycin/NS 500mg/250ml 250 ML IV SCH (08:08)
[2021-05-06] MEDS: ipratropium/albuterol 3ml nebule NEB SCH (08:59)
[2021-05-06 10:56] LABS: BASOPHILS % (AUTO) 0.1 % (0-1); EOSINOPHILS % (AUTO) 0.1 % (0-6); HEMATOCRIT 40.4 % (42.0-52.0); HEMOGLOBIN 13.3 g/dl (14.0-17.9); LYMPHOCYTES # (AUTO) 1.5 X10'3 (1.1-4.8); LYMPHOCYTES % (AUTO) 9.7 % (21-51); MEAN CORPUSCULAR HEMOGLOBIN 29.9 PG (27.0-31.0); MEAN CORPUSCULAR HGB CONC 32.8 g/dL (33.0-36.5); MEAN PLATELET VOLUME 6.9 FL (7.4-10.4); MONOCYTES # (AUTO) 1.4 X10'3 (0-0.9); MONOCYTES % (AUTO) 9.3 % (2-12); NEUTROPHILS # (AUTO) 12.2 X10'3 (1.8-7.7); NEUTROPHILS % (AUTO) 80.8 % (42-75); PLATELET COUNT 446 X10'3 (140-440); RED BLOOD COUNT 4.44 X10'6 (4.70-6.10); WHITE BLOOD COUNT 15.1 X10'3 (4.5-11.0)
[2021-05-06 11:00] VITALS: BP 114/54
[2021-05-06 11:09] LABS: ALANINE AMINOTRANSFERASE 26 U/L (12-78); ALBUMIN 1.9 G/DL (3.4-5.0); ALBUMIN/GLOBULIN RATIO 0.4 (1.1-1.5); ALKALINE PHOSPHATASE 85 IU/L (46-116); ANION GAP 6 (8-16); ASPARTATE AMINO TRANSFERASE 14 U/L (10-37); BILIRUBIN,TOTAL 0.3 MG/DL (0.1-1.0); BLOOD UREA NITROGEN 26 MG/DL (7-18); BUN/CREATININE RATIO 25.2 (5.4-32.0); CHLORIDE 98 MMOL/L (99-107); CREATININE 1.03 MG/DL (0.60-1.10); GLUCOSE 189 MG/DL (70-104); SODIUM 140 MMOL/L (135-145); TOTAL CARBON DIOXIDE 35.9 MMOL/L (24-32); TOTAL PROTEIN 6.4 G/DL (6.4-8.2); eGFR 70 ML/MIN
[2021-05-06] MEDS ORDERED: apixaban 5mg tablet PO ONE (11:45)
[2021-05-06] MEDS ORDERED: AMIO200T67 PO (12:49)
[2021-05-06] MEDS ORDERED: APIX5TAB3 PO (12:49)
[2021-05-06] MEDS ORDERED: LOP25T PO (12:49)
--- NOTE | 2021-05-06 12:59 | NUR ---
Paged Dr Gómez PAGER ID: [phone] MESSAGE: Erick Grady [phone] I need confirmation on discharge with Gabapentin dose? Thanks Erma [phone]
[2021-05-06] MEDS ORDERED: gabapentin capsule PO (13:28)
--- NOTE | 2021-05-06 15:00 | NUR ---
Pt stable for discharge home per md orders. All instructions were given, questions answered appropriately. All belongings were collected and sent with and patient. PIV discontinued, cannula intact. Tele discontinued, telephonic case manager notified. New RX sent to [facility] in [place]. Informed pt to follow up with Dr Whyte, Dr Eddy, and PCP. Wheeled pt to lobby and assisted into car with .
[2021-05-06] MEDS ORDERED: apixaban 5mg tablet PO SCH (20:00)
== END 2021-05-06 15:10 | disposition home or self-care (01) | DRG 417 ==
LOC: ER 03:39 → ED HOLD 08:19 → EDBEDREQ 12:46 → ORTHO 4S 17:01 → PCU 3S 05-02 14:40
PROVIDERS: ADMIT Internal Medicine; ATTEND Internal Medicine
PROC: BW211ZZ Computerized Tomography (CT Scan) of Abdomen and Pelvis using Low Osmolar Contrast (ICD-10-PCS; 2021-04-30)
PROC: 0FT44ZZ Resection of Gallbladder, Percutaneous Endoscopic Approach (ICD-10-PCS; principal; 2021-04-30 13:37)
PROC: 5A0945A Assistance with Respiratory Ventilation, 24-96 Consecutive Hours, High Flow/Velocity Cannula (ICD-10-PCS; 2021-05-02)
DX: K80.00 Calculus of gallbladder with acute cholecystitis without obstruction (principal); J96.01 Acute respiratory failure with hypoxia; I47.1 Supraventricular tachycardia; I50.30 Unspecified diastolic (congestive) heart failure; I48.92 Unspecified atrial flutter; I31.3 Pericardial effusion (noninflammatory); J90 Pleural effusion, not elsewhere classified; N28.1 Cyst of kidney, acquired; Z66 Do not resuscitate; I48.91 Unspecified atrial fibrillation; E78.00 Pure hypercholesterolemia, unspecified; E78.5 Hyperlipidemia, unspecified; K82.8 Other specified diseases of gallbladder; B19.20 Unspecified viral hepatitis C without hepatic coma; J98.01 Acute bronchospasm; F41.9 Anxiety disorder, unspecified; G62.9 Polyneuropathy, unspecified; I11.0 Hypertensive heart disease with heart failure; M10.9 Gout, unspecified; M19.90 Unspecified osteoarthritis, unspecified site; Z20.822 Contact with and (suspected) exposure to COVID-19; M81.0 Age-related osteoporosis without current pathological fracture; N40.0 Benign prostatic hyperplasia without lower urinary tract symptoms; Z79.01 Long term (current) use of anticoagulants; Z82.0 Family history of epilepsy and other diseases of the nervous system; Z87.891 Personal history of nicotine dependence; Z98.41 Cataract extraction status, right eye; Z98.42 Cataract extraction status, left eye; Z90.49 Acquired absence of other specified parts of digestive tract; Z79.899 Other long term (current) drug therapy; Z79.82 Long term (current) use of aspirin
CPT/HCPCS: 36415; 36600; 71045; 71046; 74177; 76604; 76700; 78580; 80048; 80053; 80162; 81001; 82150; 82247; 82803; 83605; 83690; 83735; 83880; 84100; 84145; 84153; 84154; 84439; 84443; 84484; 85018; 85025; 85379; 87040; 87088; 87635; 88304; 93005; 93306; 94640; 94667; 94668; 94760; 96365; 97116; 97161; 97530; 99285; A4215; A4618; A7000; A9540; G0378; J0131; J0456; J0694; J0696; J1100; J1160; J1940; J1956; J2001; J2060; J2175; J2270; J2405; J2543; J2704; J2710; J2920; J2930; J3010; J3490; J7030; J7040; J7120; Q9963; Q9967

== ENCOUNTER 2021-10-09 20:55 | Emergency (ER) | payer MEDICARE ==
[~2021-10-09] VITALS: Ht 175.3 cm; Wt 84.0 kg
[~2021-10-09 20:55] MED LIST changes: +ALEN70TA37 PO; +AMIO200T67 PO; +APIX5TAB3 PO; -COLC0.6T72 PO; +FLO0.4C PO; -GABA300C PO; +gabapentin capsule PO
[2021-10-09 20:56] VITALS: BP 159/88
[2021-10-09] MEDS ORDERED: normal saline 1000ml 1,000 ML IV ONE (21:05)
[2021-10-09] MEDS ORDERED: ondansetron/PF 4mg/2ml inj IV ONE (21:05)
[2021-10-09 21:28] LABS: BASOPHILS % (AUTO) 0.2 % (0-1); EOSINOPHILS % (AUTO) 0 % (0-6); HEMATOCRIT 38.4 % (42.0-52.0); HEMOGLOBIN 12.5 g/dl (14.0-17.9); LYMPHOCYTES # (AUTO) 0.9 X10'3 (1.1-4.8); LYMPHOCYTES % (AUTO) 7.6 % (21-51); MEAN CORPUSCULAR HEMOGLOBIN 26.2 PG (27.0-31.0); MEAN CORPUSCULAR HGB CONC 32.7 g/dL (33.0-36.5); MEAN PLATELET VOLUME 6.3 FL (7.4-10.4); MONOCYTES # (AUTO) 0.7 X10'3 (0-0.9); MONOCYTES % (AUTO) 6.6 % (2-12); NEUTROPHILS # (AUTO) 9.7 X10'3 (1.8-7.7); NEUTROPHILS % (AUTO) 85.6 % (42-75); PLATELET COUNT 521 X10'3 (140-440); RED BLOOD COUNT 4.79 X10'6 (4.70-6.10); RED CELL DISTRIBUTION WIDTH 14.3 % (11.5-14.5); WHITE BLOOD COUNT 11.3 X10'3 (4.5-11.0)
[2021-10-09 21:44] LABS: ALANINE AMINOTRANSFERASE 12 U/L (12-78); ALBUMIN 2.9 G/DL (3.4-5.0); ALBUMIN/GLOBULIN RATIO 0.5 (1.1-1.5); ALKALINE PHOSPHATASE 82 IU/L (46-116); ANION GAP 9 (8-16); ASPARTATE AMINO TRANSFERASE 13 U/L (10-37); BILIRUBIN,TOTAL 0.5 MG/DL (0.1-1.0); BLOOD UREA NITROGEN 19 MG/DL (7-18); CALCIUM 8.7 MG/DL (8.5-10.1); CHLORIDE 101 MMOL/L (99-107); CREATININE 1.19 MG/DL (0.60-1.10); GLUCOSE 137 MG/DL (70-104); POTASSIUM 4.4 MMOL/L (3.5-5.1); SODIUM 135 MMOL/L (135-145); TOTAL CARBON DIOXIDE 24.6 MMOL/L (24-32); TOTAL PROTEIN 8.3 G/DL (6.4-8.2); eGFR 59 ML/MIN
[2021-10-09 21:45] LABS: LIPASE 69 U/L (73-393)
[2021-10-09] MEDS ORDERED: WARF-55 PO (21:58)
[2021-10-09] MEDS ORDERED: METO25TA6 PO (21:58)
[2021-10-09] MEDS ORDERED: LOPE2CAP PO (22:11)
[2021-10-09] MEDS ORDERED: ONDA8TAB13 PO (22:11)
[2021-10-09] MEDS ORDERED: loperamide 2mg capsule PO ONE (22:15)
== END 2021-10-09 23:00 | disposition home or self-care (01) ==
LOC: ER 20:55
DX: K52.9 Noninfective gastroenteritis and colitis, unspecified (principal); Z20.822 Contact with and (suspected) exposure to COVID-19; E78.00 Pure hypercholesterolemia, unspecified; G30.9 Alzheimer's disease, unspecified; F02.80 Dementia in other diseases classified elsewhere, unspecified severity, without behavioral disturbance, psychotic disturbance, mood disturbance, and anxiety; Z86.19 Personal history of other infectious and parasitic diseases; Z90.49 Acquired absence of other specified parts of digestive tract; Z72.89 Other problems related to lifestyle; Z79.82 Long term (current) use of aspirin; Z79.899 Other long term (current) drug therapy; Z79.01 Long term (current) use of anticoagulants
CPT/HCPCS: 36415; 71045; 80053; 83690; 84145; 84484; 85025; 87635; 93005; 96361; 96374; 99285; C9803; J2405; J7030; 81003

== ENCOUNTER 2021-10-31 08:29 | Outpatient (CLI) | payer MEDICARE ==
[2021-10-28 10:50] LABS: ALANINE AMINOTRANSFERASE 13 U/L (12-78); ALBUMIN 2.6 G/DL (3.4-5.0); ALBUMIN/GLOBULIN RATIO 0.5 (1.1-1.5); ALKALINE PHOSPHATASE 85 IU/L (46-116); ASPARTATE AMINO TRANSFERASE 10 U/L (10-37); BILIRUBIN,TOTAL 0.4 MG/DL (0.1-1.0); BLOOD UREA NITROGEN 15 MG/DL (7-18); CALCIUM 9.2 MG/DL (8.5-10.1); CHLORIDE 100 MMOL/L (99-107); GLUCOSE 142 MG/DL (70-104); TOTAL PROTEIN 8.3 G/DL (6.4-8.2)
[2021-10-28 10:57] LABS: ANION GAP 6 (8-16); POTASSIUM 4.4 MMOL/L (3.5-5.1); SODIUM 136 MMOL/L (135-145); TOTAL CARBON DIOXIDE 30.3 MMOL/L (24-32)
[2021-10-28 10:58] LABS: BUN/CREATININE RATIO 16.7 (5.4-32.0); eGFR 82 ML/MIN
[~2021-10-31 08:29] MED LIST changes: -AMIO200T67 PO; -APIX5TAB3 PO; -LOP25T PO; +LOPE2CAP PO; +METO25TA6 PO; +ONDA8TAB13 PO; -SAW1CAPS5 PO; +WARF-55 PO
[2021-10-31] MEDS ORDERED: iohexol 300mg/ml 100ml inj. ONE (09:16)
== END 2021-10-31 23:59 | disposition home or self-care (01) ==
LOC: RAD 08:29
PROVIDERS: ATTEND Surgery
DX: Z01.818 Encounter for other preprocedural examination (principal); N28.1 Cyst of kidney, acquired; J98.11 Atelectasis; I70.0 Atherosclerosis of aorta; Z90.49 Acquired absence of other specified parts of digestive tract
CPT/HCPCS: 36415; 74177; 80053; Q9967

== ENCOUNTER 2021-11-01 17:23 | Inpatient (IN) | payer MEDICARE ==
[~2021-11-01] VITALS: Ht 177.8 cm; Wt 84.1 kg
[2021-11-01 17:57] LABS: BASOPHILS # (AUTO) 0.1 X10'3 (0-0.2); BASOPHILS % (AUTO) 0.4 % (0-1); EOSINOPHILS % (AUTO) 0.1 % (0-6); HEMATOCRIT 33.5 % (42.0-52.0); HEMOGLOBIN 10.7 g/dl (14.0-17.9); LYMPHOCYTES # (AUTO) 1.9 X10'3 (1.1-4.8); LYMPHOCYTES % (AUTO) 11.5 % (21-51); MEAN CORPUSCULAR HEMOGLOBIN 25.1 PG (27.0-31.0); MEAN CORPUSCULAR VOLUME 78.3 FL (78-98); MEAN PLATELET VOLUME 6.3 FL (7.4-10.4); MONOCYTES # (AUTO) 1.9 X10'3 (0-0.9); MONOCYTES % (AUTO) 11.2 % (2-12); NEUTROPHILS # (AUTO) 12.7 X10'3 (1.8-7.7); NEUTROPHILS % (AUTO) 76.8 % (42-75); PLATELET COUNT 579 X10'3 (140-440); RED BLOOD COUNT 4.28 X10'6 (4.70-6.10); RED CELL DISTRIBUTION WIDTH 14.6 % (11.5-14.5); WHITE BLOOD COUNT 16.6 X10'3 (4.5-11.0)
[2021-11-01 18:15] LABS: ALANINE AMINOTRANSFERASE 11 U/L (12-78); ALBUMIN 2.4 G/DL (3.4-5.0); ALBUMIN/GLOBULIN RATIO 0.4 (1.1-1.5); ALKALINE PHOSPHATASE 89 IU/L (46-116); ANION GAP 9 (8-16); ASPARTATE AMINO TRANSFERASE 11 U/L (10-37); BILIRUBIN,TOTAL 0.4 MG/DL (0.1-1.0); BLOOD UREA NITROGEN 18 MG/DL (7-18); BUN/CREATININE RATIO 21.2 (5.4-32.0); CALCIUM 9.4 MG/DL (8.5-10.1); CHLORIDE 98 MMOL/L (99-107); CREATININE 0.85 MG/DL (0.60-1.10); GLUCOSE 135 MG/DL (70-104); POTASSIUM 4.6 MMOL/L (3.5-5.1); SODIUM 133 MMOL/L (135-145); TOTAL CARBON DIOXIDE 26.1 MMOL/L (24-32); eGFR 87 ML/MIN
[2021-11-01 18:20] LABS: CLARITY,URINE CLEAR (Clear); COLOR,URINE YELLOW (Yellow); GLUCOSE, URINE NEGATIVE (Neg); KETONES,URINE NEGATIVE (Neg); LEUKOCYTE ESTERASE ,URINE NEGATIVE (Neg); NITRITES, URINE NEGATIVE (Neg); OCCULT BLOOD,URINE TRACE-INTACT (Neg); PH,URINE 5.5 (4.8-8.0); PROTEIN,URINE NEGATIVE (Neg); UROBILINOGEN,URINE 0.2 E.U/dL (0.2-1.0)
[2021-11-01] MEDS ORDERED: metroNIDAZOLE-Flagyl 500mg/NS 100 ML IV STA (18:22)
[2021-11-01] MEDS ORDERED: piperacillin/tazo 3.375gm/50ml 50 ML IV ONE (18:25)
[2021-11-01 18:27] LABS: UA COLLECTION TYPE CLN CATCH MIDSTREAM
[2021-11-01 18:29] LABS: BACTERIA,URINE NONE SEEN /HPF (Neg); RBC,URINE 0-2 /HPF (0-2); WBC,URINE NONE SEEN /HPF (0-4)
[2021-11-01 18:30] LABS: HYALINE CASTS 0-3 /LPF (NEGATIVE); SQUAMOUS EPITHELIAL CELL,UR NONE SEEN /LPF (FEW)
--- NOTE | 2021-11-01 18:55 | NUR ---
first encounter with pt., states the pain on his left side has improved, now at 5/10
[2021-11-01] MEDS ORDERED: morphine 4 MG/ML inj SYRINge IV PRN (19:00)
[2021-11-01] MEDS ORDERED: ondansetron/PF 4mg/2ml inj IV ONE (19:00)
[2021-11-01] MEDS ORDERED: fentaNYL/PF 50MCG/1 ML 2ML syringe IV ONE (21:05)
[2021-11-01] MEDS ORDERED: magnesium Cl slow-release 64mg tablet PO PRN (22:25)
[2021-11-01] MEDS ORDERED: potassium Cl 20 mEq SR tablet PO PRN ×2 (22:25)
[2021-11-01] MEDS ORDERED: magnesium 4gm in 100ml NS 100 ML IV PRN (22:25)
[2021-11-01] MEDS ORDERED: magnesium 2GM in 50ml NS 50 ML IV PRN (22:25)
[2021-11-01] MEDS ORDERED: potassium CL 10mEq/100ml bag 100 ML IV PRN (22:25)
[2021-11-01] MEDS ORDERED: morphine 2 MG/ML inj. syringe IV PRN (22:25)
[2021-11-01] MEDS ORDERED: mag hydrox/Alum hydrox/simeth 30ml oral suspension PO PRN (22:25)
[2021-11-01] MEDS ORDERED: HYDROcodone/acetaminophen 5mg/325mg tablet PO PRN (22:25)
[2021-11-01] MEDS ORDERED: acetaminophen 325mg tablet PO PRN ×2 (22:25)
[2021-11-01] MEDS ORDERED: vancomycin/NS 1 GM ADD-VANTAGE 250 ML X 1 DOSE IV ONE (22:45)
--- NOTE | 2021-11-01 22:45 | NUR ---
Pt medicated per oct for pain at 02/03
[2021-11-01] MEDS: normal saline 1000ml 1,000 ML IV SCH (22:47)
--- NOTE | 2021-11-01 23:54 | NUR ---
report called to floor rn for pt going to rm 355A
[2021-11-02 00:05] VITALS: BP 156/81
--- NOTE | 2021-11-02 00:05 | NUR ---
PATIENT ADMITTED TO ROOM 355A FROM ER FOR LIVER ABSCESS AND CONTROLLED A FIB. PLACED COMFORTABLE IN BED. VITAL SIGNS TAKEN AND RECORDED.
[2021-11-02] MEDS: ondansetron/PF 4mg/2ml inj IV PRN ×2 (00:52→07:43)
[2021-11-02] MEDS: morphine 2 MG/ML inj. syringe IV PRN ×4 (01:02→19:41)
[2021-11-02] MEDS ORDERED: metoclopramide 5 mg/ml inj IV ONE (02:30)
[2021-11-02] MEDS ORDERED: metoclopramide 5 mg/ml inj IV PRN (04:30)
[2021-11-02] MEDS: piperacillin/tazo 3.375gm/50ml 50 ML IV SCH ×3 (04:35→20:23)
[2021-11-02] MEDS ORDERED: GABA300C PO (04:48)
[2021-11-02] MEDS ORDERED: non-formulary drug (Alendronate Sodium 1 TAB) PO SCH (06:05)
[2021-11-02 06:18] LABS: BASOPHILS # (AUTO) 0.1 X10'3 (0-0.2); BASOPHILS % (AUTO) 0.3 % (0-1); EOSINOPHILS % (AUTO) 0 % (0-6); HEMATOCRIT 30.2 % (42.0-52.0); HEMOGLOBIN 9.7 g/dl (14.0-17.9); LYMPHOCYTES # (AUTO) 1.8 X10'3 (1.1-4.8); LYMPHOCYTES % (AUTO) 12.2 % (21-51); MEAN CORPUSCULAR HEMOGLOBIN 25.5 PG (27.0-31.0); MEAN CORPUSCULAR HGB CONC 32.2 g/dL (33.0-36.5); MEAN CORPUSCULAR VOLUME 79.2 FL (78-98); MEAN PLATELET VOLUME 6.3 FL (7.4-10.4); MONOCYTES # (AUTO) 1.8 X10'3 (0-0.9); NEUTROPHILS # (AUTO) 11.1 X10'3 (1.8-7.7); NEUTROPHILS % (AUTO) 75.5 % (42-75); PLATELET COUNT 529 X10'3 (140-440); RED BLOOD COUNT 3.81 X10'6 (4.70-6.10); WHITE BLOOD COUNT 14.8 X10'3 (4.5-11.0)
--- NOTE | 2021-11-02 06:30 | NUR ---
Patient in room ZACK 355. I have received report from Veronica Martin RN and had the opportunity to ask questions and assume patient care.
--- NOTE | 2021-11-02 06:30 | NUR ---
Problems reprioritized. Patient report given, questions answered & plan of care reviewed with NEEL CHICAS.
[2021-11-02 06:34] LABS: ALANINE AMINOTRANSFERASE 11 U/L (12-78); ALBUMIN 2.1 G/DL (3.4-5.0); ALBUMIN/GLOBULIN RATIO 0.4 (1.1-1.5); ALKALINE PHOSPHATASE 89 IU/L (46-116); ANION GAP 9 (8-16); ASPARTATE AMINO TRANSFERASE 11 U/L (10-37); BILIRUBIN,TOTAL 0.5 MG/DL (0.1-1.0); BLOOD UREA NITROGEN 14 MG/DL (7-18); BUN/CREATININE RATIO 14.6 (5.4-32.0); CALCIUM 8.8 MG/DL (8.5-10.1); CHLORIDE 100 MMOL/L (99-107); CREATININE 0.96 MG/DL (0.60-1.10); GLUCOSE 111 MG/DL (70-104); POTASSIUM 4.4 MMOL/L (3.5-5.1); SODIUM 136 MMOL/L (135-145); TOTAL CARBON DIOXIDE 27.4 MMOL/L (24-32); TOTAL PROTEIN 7.4 G/DL (6.4-8.2); eGFR 76 ML/MIN
[2021-11-02 07:00] VITALS: BP_SYST 117; BP_SYST 131; BP_DIAS 68; BP_DIAS 71
[2021-11-02] MEDS: gabapentin 300mg capsule PO SCH ×2 (08:00→20:00)
[2021-11-02] MEDS ORDERED: metoprolol tartrate 25mg tablet PO SCH (08:00)
[2021-11-02] MEDS: K and/or MAG REPLACEMENT MC SCH ×2 (08:00→20:00)
[2021-11-02] MEDS: tamsulosin 0.4mg capsule PO SCH (08:00)
[2021-11-02] MEDS ORDERED: heparin, porcine 5000 units/ml vial SQ SCH (08:00)
[2021-11-02] MEDS ORDERED: VANCOMYCIN 1GM/200ML IVPB 200 ML IV SCH (08:00)
[2021-11-02] MEDS: aspirin 81mg tab.chew PO SCH (08:00)
[2021-11-02] MEDS ORDERED: iohexol 300mg/ml 100ml inj. ONE (09:39)
[2021-11-02] MEDS ORDERED: pneumococcal 23-VAL P-sac vacc 25 mcg/0.5ml vial IMVAC ONE (10:00)
--- NOTE | 2021-11-02 11:38 | NUR ---
Malnutrition consult: Pt admitted w/ abd pain and liver abscess, w/ hx of recent cholecystectomy per EMR. Per MST, pt reports 24-33lb wt loss, no recent wt hx in EMR though pt had scaled wt of 89kg in 2012, current wt 84kg not scaled. No reports of muscle/fat wasting per EMR, no edema present and w/ normal muscle strength. At this time, pt does not meet minimum criteria for malnutrition. Addendum: 11/02/21 at [address] Amended: Links added.
[2021-11-02] MEDS: normal saline 1000ml 1,000 ML IV SCH ×2 (11:45→16:08)
[2021-11-02 12:17] LABS: APTT 47 SECONDS (22-32)
[2021-11-02] MEDS ORDERED: DUTA0.5C36 PO (13:06)
[2021-11-02] MEDS ORDERED: ondansetron/PF 4mg/2ml inj IV PRN (13:45)
[2021-11-02] MEDS ORDERED: ondansetron/PF 4mg/2ml inj IV ONE (13:45)
[2021-11-02] MEDS: proCHLORperazine 10 MG/2 ml inj IV PRN ×2 (14:07→19:41)
[2021-11-02] MEDS ORDERED: phytonadione inj. 3 MG in normal saline 100ml IV soln 100 ML IV ONE (14:20)
--- NOTE | 2021-11-02 18:35 | NUR ---
Problems reprioritized. Patient report given, questions answered & plan of care reviewed with AVIVA Olivas.
--- NOTE | 2021-11-02 18:40 | NUR ---
Patient in room ZACK 354. I have received report from NEEL CHICAS and had the opportunity to ask questions and assume patient care.
[2021-11-02 20:00] VITALS: BP 152/85
[2021-11-02] MEDS: metoprolol tartrate 25mg tablet PO SCH (20:00)
[2021-11-02] MEDS: temazepam 15mg capsule PO PRN (22:43)
[2021-11-03] VITALS (10 sets, daily range): BP systolic 108–153; BP diastolic 66–86
[2021-11-03] MEDS: morphine 2 MG/ML inj. syringe IV PRN ×2 (00:48→08:40)
[2021-11-03] MEDS: normal saline 1000ml 1,000 ML IV SCH ×2 (02:48→18:19)
[2021-11-03] MEDS: proCHLORperazine 10 MG/2 ml inj IV PRN ×2 (03:51→10:39)
[2021-11-03] MEDS: piperacillin/tazo 3.375gm/50ml 50 ML IV SCH ×3 (03:54→19:07)
--- NOTE | 2021-11-03 06:26 | NUR ---
Problems reprioritized. Patient report given, questions answered & plan of care reviewed with NEEL CHICAS.
[2021-11-03] MEDS ORDERED: VANCOMYCIN LEVEL IV ONE (07:30)
[2021-11-03 07:35] LABS: BASOPHILS % (AUTO) 0.3 % (0-1); EOSINOPHILS % (AUTO) 0.1 % (0-6); HEMATOCRIT 31.9 % (42.0-52.0); HEMOGLOBIN 10.1 g/dl (14.0-17.9); LYMPHOCYTES # (AUTO) 1.4 X10'3 (1.1-4.8); LYMPHOCYTES % (AUTO) 8.8 % (21-51); MEAN CORPUSCULAR HEMOGLOBIN 25.1 PG (27.0-31.0); MEAN CORPUSCULAR HGB CONC 31.6 g/dL (33.0-36.5); MEAN CORPUSCULAR VOLUME 79.5 FL (78-98); MEAN PLATELET VOLUME 6.3 FL (7.4-10.4); MONOCYTES # (AUTO) 2.1 X10'3 (0-0.9); MONOCYTES % (AUTO) 13.2 % (2-12); NEUTROPHILS # (AUTO) 12.6 X10'3 (1.8-7.7); NEUTROPHILS % (AUTO) 77.6 % (42-75); PLATELET COUNT 537 X10'3 (140-440); RED BLOOD COUNT 4.02 X10'6 (4.70-6.10); RED CELL DISTRIBUTION WIDTH 14.7 % (11.5-14.5); WHITE BLOOD COUNT 16.2 X10'3 (4.5-11.0)
[2021-11-03 07:55] LABS: APTT 30 SECONDS (22-32)
[2021-11-03] MEDS: tamsulosin 0.4mg capsule PO SCH (08:00)
[2021-11-03] MEDS: K and/or MAG REPLACEMENT MC SCH ×2 (08:00→20:00)
[2021-11-03] MEDS ORDERED: pneumococcal 23-VAL P-sac vacc 25 mcg/0.5ml vial IMVAC ONE (08:00)
[2021-11-03] MEDS: aspirin 81mg tab.chew PO SCH (08:00)
[2021-11-03] MEDS: gabapentin 300mg capsule PO SCH ×2 (08:00→19:07)
[2021-11-03 08:05] LABS: MICROCYTOSIS 1+; PLATELET ESTIMATE INCREASED; TOTAL CELLS COUNTED 100
[2021-11-03] MEDS: metoprolol tartrate 25mg tablet PO SCH ×2 (08:29→19:13)
[2021-11-03 09:29] LABS: ALANINE AMINOTRANSFERASE 10 U/L (12-78); ALBUMIN/GLOBULIN RATIO 0.4 (1.1-1.5); ALKALINE PHOSPHATASE 82 IU/L (46-116); ANION GAP 11 (8-16); ASPARTATE AMINO TRANSFERASE 9 U/L (10-37); BILIRUBIN,TOTAL 0.7 MG/DL (0.1-1.0); BLOOD UREA NITROGEN 13 MG/DL (7-18); BUN/CREATININE RATIO 13.4 (5.4-32.0); CHLORIDE 100 MMOL/L (99-107); CREATININE 0.97 MG/DL (0.60-1.10); GLUCOSE 115 MG/DL (70-104); POTASSIUM 3.9 MMOL/L (3.5-5.1); SODIUM 134 MMOL/L (135-145); TOTAL CARBON DIOXIDE 22.6 MMOL/L (24-32); TOTAL PROTEIN 7.2 G/DL (6.4-8.2); eGFR 75 ML/MIN
--- NOTE | 2021-11-03 11:16 | NUR ---
Pt to IR via WC
[2021-11-03] MEDS ORDERED: midazolam 1 mg/ML 2ml injection ONE (11:37)
[2021-11-03] MEDS ORDERED: fentaNYL/PF 50MCG/1 ML 2ML syringe ONE (11:38)
--- NOTE | 2021-11-03 12:30 | NUR ---
pt returned to room with pigtail drain, curran purulent product present. 60 ml reported removed for testing by IR. Pt reports improvement in pain and nausea.
[2021-11-03] MEDS ORDERED: LORazepam 0.5 MG tablet PO PRN (12:40)
--- NOTE | 2021-11-03 14:01 | NUR ---
Problems reprioritized. Patient report given, questions answered & plan of care reviewed with AVIVA Barajas.
--- NOTE | 2021-11-03 14:15 | NUR ---
Patient in room ZACK 354. I have received report from AVIVA Lundberg and had the opportunity to ask questions and assume patient care. Patient comfortable in room. at bedside.
[2021-11-03] MEDS: HYDROcodone/acetaminophen 10/325mg tab PO PRN (15:42)
--- NOTE | 2021-11-03 15:44 | NUR ---
Message: DeniseA Charmaine Chacko: Patient back from IR. feeling much better. wondering if he can start back on a diet or clear? colten shi [phone] Transaction number: [id number]
--- NOTE | 2021-11-03 15:52 | NUR ---
Charting by Reena RAUSCH reviewed by Presley Palumbo RN. Medication pass observed by Presley Palumbo RN
--- NOTE | 2021-11-03 18:20 | NUR ---
Problems reprioritized. Patient report given, questions answered & plan of care reviewed with AVIVA Chao.
--- NOTE | 2021-11-03 18:37 | NUR ---
I have received report from AVIVA De Leon and had the opportunity to ask questions and assume patient care.
[2021-11-03] MEDS: temazepam 15mg capsule PO PRN (20:27)
[2021-11-04] MEDS: HYDROcodone/acetaminophen 10/325mg tab PO PRN ×4 (02:09→18:15)
[2021-11-04] MEDS: piperacillin/tazo 3.375gm/50ml 50 ML IV SCH ×3 (04:07→20:47)
--- NOTE | 2021-11-04 06:20 | NUR ---
Patient in room ZACK 354. I have received report from AVIVA Chao and had the opportunity to ask questions and assume patient care.
[2021-11-04 06:30] VITALS: BP 108/75
--- NOTE | 2021-11-04 06:33 | NUR ---
Problems reprioritized. Patient report given, questions answered & plan of care reviewed with AVIVA Dumont. I agree with Chelo associate director of nursing assessments, documentation, nd report given to Julia RN
--- NOTE | 2021-11-04 06:34 | NUR ---
Problems reprioritized. Patient report given, questions answered & plan of care reviewed with Julia.
[2021-11-04 07:00] LABS: BASOPHILS # (AUTO) 0.1 X10'3 (0-0.2); BASOPHILS % (AUTO) 0.4 % (0-1); EOSINOPHILS # (AUTO) 0.1 X10'3 (0-0.9); EOSINOPHILS % (AUTO) 0.7 % (0-6); HEMOGLOBIN 9.6 g/dl (14.0-17.9); LYMPHOCYTES # (AUTO) 1.9 X10'3 (1.1-4.8); LYMPHOCYTES % (AUTO) 12.4 % (21-51); MEAN CORPUSCULAR HEMOGLOBIN 25.4 PG (27.0-31.0); MEAN CORPUSCULAR HGB CONC 32.1 g/dL (33.0-36.5); MEAN CORPUSCULAR VOLUME 79.1 FL (78-98); MEAN PLATELET VOLUME 6.5 FL (7.4-10.4); MONOCYTES # (AUTO) 1.6 X10'3 (0-0.9); NEUTROPHILS # (AUTO) 11.2 X10'3 (1.8-7.7); NEUTROPHILS % (AUTO) 75.5 % (42-75); PLATELET COUNT 582 X10'3 (140-440); RED BLOOD COUNT 3.79 X10'6 (4.70-6.10); RED CELL DISTRIBUTION WIDTH 14.3 % (11.5-14.5); WHITE BLOOD COUNT 14.9 X10'3 (4.5-11.0)
[2021-11-04 07:01] LABS: APTT 28 SECONDS (22-32)
[2021-11-04] MEDS: normal saline 1000ml 1,000 ML IV SCH ×2 (07:02→20:49)
[2021-11-04] MEDS ORDERED: bisacodyl 10mg suppository rectal RC PRN (07:30)
[2021-11-04 07:33] LABS: ALANINE AMINOTRANSFERASE 9 U/L (12-78); ALBUMIN 1.8 G/DL (3.4-5.0); ALBUMIN/GLOBULIN RATIO 0.4 (1.1-1.5); ALKALINE PHOSPHATASE 77 IU/L (46-116); ANION GAP 9 (8-16); ASPARTATE AMINO TRANSFERASE 13 U/L (10-37); BILIRUBIN,TOTAL 0.4 MG/DL (0.1-1.0); BLOOD UREA NITROGEN 14 MG/DL (7-18); BUN/CREATININE RATIO 16.1 (5.4-32.0); CALCIUM 7.5 MG/DL (8.5-10.1); CHLORIDE 101 MMOL/L (99-107); CREATININE 0.87 MG/DL (0.60-1.10); GLUCOSE 99 MG/DL (70-104); POTASSIUM 3.7 MMOL/L (3.5-5.1); SODIUM 137 MMOL/L (135-145); TOTAL CARBON DIOXIDE 27.1 MMOL/L (24-32); TOTAL PROTEIN 6.9 G/DL (6.4-8.2); eGFR 85 ML/MIN
[2021-11-04] MEDS: K and/or MAG REPLACEMENT MC SCH ×2 (08:00→20:00)
[2021-11-04] MEDS: aspirin 81mg tab.chew PO SCH (08:47)
[2021-11-04] MEDS: metoprolol tartrate 25mg tablet PO SCH ×2 (08:48→20:49)
[2021-11-04] MEDS: tamsulosin 0.4mg capsule PO SCH (08:48)
[2021-11-04] MEDS: gabapentin 300mg capsule PO SCH ×2 (08:48→20:47)
[2021-11-04] MEDS: hydrocortisone 1% cream 28gm TP SCH (10:11)
[2021-11-04 11:00] VITALS: BP 119/69
[2021-11-04 18:00] VITALS: BP 142/78
--- NOTE | 2021-11-04 18:00 | NUR ---
Problems reprioritized. Patient report given, questions answered & plan of care reviewed with AVIVA Chao.
--- NOTE | 2021-11-04 18:45 | NUR ---
Patient in room ZACK 354. I have received report from AVIVA Dumont and had the opportunity to ask questions and assume patient care. at bedside
--- NOTE | 2021-11-04 19:28 | NUR ---
Patient in room ZACK 354. I have received report from Julia, and had the opportunity to ask questions and assume patient care.
[2021-11-04] MEDS: temazepam 15mg capsule PO PRN (20:47)
[2021-11-05] VITALS: BP 118/76
[2021-11-05] MEDS: piperacillin/tazo 3.375gm/50ml 50 ML IV SCH ×3 (04:13→19:37)
--- NOTE | 2021-11-05 05:15 | NUR ---
around 1999 patient JOSE had opened and leaked all over the bed. There was not any more output since. Will continue to monitor.
[2021-11-05 05:59] LABS: BASOPHILS % (AUTO) 0.4 % (0-1); EOSINOPHILS # (AUTO) 0.1 X10'3 (0-0.9); EOSINOPHILS % (AUTO) 1.1 % (0-6); HEMATOCRIT 29.1 % (42.0-52.0); HEMOGLOBIN 9.3 g/dl (14.0-17.9); LYMPHOCYTES % (AUTO) 17.1 % (21-51); MEAN CORPUSCULAR HEMOGLOBIN 25.3 PG (27.0-31.0); MEAN CORPUSCULAR HGB CONC 31.8 g/dL (33.0-36.5); MEAN CORPUSCULAR VOLUME 79.6 FL (78-98); MEAN PLATELET VOLUME 6.3 FL (7.4-10.4); MONOCYTES # (AUTO) 1.5 X10'3 (0-0.9); MONOCYTES % (AUTO) 12.7 % (2-12); NEUTROPHILS # (AUTO) 8.1 X10'3 (1.8-7.7); NEUTROPHILS % (AUTO) 68.7 % (42-75); PLATELET COUNT 549 X10'3 (140-440); RED BLOOD COUNT 3.65 X10'6 (4.70-6.10); RED CELL DISTRIBUTION WIDTH 14.8 % (11.5-14.5); WHITE BLOOD COUNT 11.9 X10'3 (4.5-11.0)
[2021-11-05 06:04] LABS: APTT 28 SECONDS (22-32)
--- NOTE | 2021-11-05 06:15 | NUR ---
Patient in room ZACK 354. I have received report from AVIVA Chao and had the opportunity to ask questions and assume patient care.
--- NOTE | 2021-11-05 06:25 | NUR ---
Patient report given, questions answered & plan of care reviewed with Julia.
--- NOTE | 2021-11-05 06:25 | NUR ---
I agree with the assessment, documentation,and report given to AVIVA Dumont, by EDGARDO Whitney student.
[2021-11-05 06:30] VITALS: BP 147/80
[2021-11-05 06:30] LABS: ALANINE AMINOTRANSFERASE 10 U/L (12-78); ALBUMIN 1.7 G/DL (3.4-5.0); ALBUMIN/GLOBULIN RATIO 0.4 (1.1-1.5); ALKALINE PHOSPHATASE 131 IU/L (46-116); ANION GAP 5 (8-16); ASPARTATE AMINO TRANSFERASE 12 U/L (10-37); BILIRUBIN,TOTAL 0.3 MG/DL (0.1-1.0); BLOOD UREA NITROGEN 11 MG/DL (7-18); BUN/CREATININE RATIO 12.6 (5.4-32.0); CALCIUM 7.8 MG/DL (8.5-10.1); CHLORIDE 103 MMOL/L (99-107); CREATININE 0.87 MG/DL (0.60-1.10); GLUCOSE 105 MG/DL (70-104); POTASSIUM 3.9 MMOL/L (3.5-5.1); SODIUM 137 MMOL/L (135-145); TOTAL CARBON DIOXIDE 28.8 MMOL/L (24-32); TOTAL PROTEIN 6.5 G/DL (6.4-8.2); eGFR 85 ML/MIN
[2021-11-05] MEDS: K and/or MAG REPLACEMENT MC SCH ×2 (06:54→20:00)
[2021-11-05] MEDS: tamsulosin 0.4mg capsule PO SCH (08:27)
[2021-11-05] MEDS: aspirin 81mg tab.chew PO SCH (08:27)
[2021-11-05] MEDS: gabapentin 300mg capsule PO SCH ×2 (08:27→19:33)
[2021-11-05] MEDS: hydrocortisone 1% cream 28gm TP SCH ×2 (08:29→20:00)
[2021-11-05] MEDS: metoprolol tartrate 25mg tablet PO SCH ×2 (08:29→19:35)
[2021-11-05 11:00] VITALS: BP 135/71
[2021-11-05] MEDS: normal saline 1000ml 1,000 ML IV SCH (11:56)
[2021-11-05 18:00] VITALS: BP 137/80
--- NOTE | 2021-11-05 18:00 | NUR ---
Problems reprioritized. Patient report given, questions answered & plan of care reviewed with AVIVA Riley.
[2021-11-05] MEDS: HYDROcodone/acetaminophen 10/325mg tab PO PRN (18:39)
--- NOTE | 2021-11-05 18:45 | NUR ---
Patient in room ZACK 354. I have received report from KAUSHAL CHICAS and had the opportunity to ask questions and assume patient care.
[2021-11-05] MEDS: temazepam 15mg capsule PO PRN (19:33)
[2021-11-05] MEDS: docusate sod 100mg capsule PO SCH (19:33)
[2021-11-05] MEDS ORDERED: warfarin 5mg tablet PO ONE (21:00)
--- NOTE | 2021-11-05 22:42 | NUR ---
Patient in room ZACK 354. I have received report from Julia and had the opportunity to ask questions and assume patient care.
[2021-11-06 00:39] VITALS: BP 136/73
[2021-11-06] MEDS: piperacillin/tazo 3.375gm/50ml 50 ML IV SCH ×3 (04:17→19:45)
[2021-11-06] MEDS: normal saline 1000ml 1,000 ML IV SCH ×2 (04:18→15:20)
[2021-11-06 06:02] LABS: BASOPHILS % (AUTO) 0.3 % (0-1); EOSINOPHILS # (AUTO) 0.2 X10'3 (0-0.9); EOSINOPHILS % (AUTO) 1.7 % (0-6); LYMPHOCYTES # (AUTO) 1.7 X10'3 (1.1-4.8); LYMPHOCYTES % (AUTO) 14.1 % (21-51); MEAN CORPUSCULAR HEMOGLOBIN 25.5 PG (27.0-31.0); MEAN CORPUSCULAR HGB CONC 32.2 g/dL (33.0-36.5); MEAN CORPUSCULAR VOLUME 79.3 FL (78-98); MEAN PLATELET VOLUME 6.3 FL (7.4-10.4); MONOCYTES # (AUTO) 1.6 X10'3 (0-0.9); MONOCYTES % (AUTO) 13.2 % (2-12); NEUTROPHILS # (AUTO) 8.8 X10'3 (1.8-7.7); NEUTROPHILS % (AUTO) 70.7 % (42-75); PLATELET COUNT 538 X10'3 (140-440); RED BLOOD COUNT 3.53 X10'6 (4.70-6.10); RED CELL DISTRIBUTION WIDTH 14.7 % (11.5-14.5); WHITE BLOOD COUNT 12.4 X10'3 (4.5-11.0)
[2021-11-06 06:15] LABS: ALBUMIN 1.6 G/DL (3.4-5.0); ALBUMIN/GLOBULIN RATIO 0.4 (1.1-1.5); ALKALINE PHOSPHATASE 112 IU/L (46-116); ANION GAP 7 (8-16); ASPARTATE AMINO TRANSFERASE 13 U/L (10-37); BILIRUBIN,TOTAL 0.3 MG/DL (0.1-1.0); BLOOD UREA NITROGEN 9 MG/DL (7-18); BUN/CREATININE RATIO 12.2 (5.4-32.0); CALCIUM 7.6 MG/DL (8.5-10.1); CHLORIDE 104 MMOL/L (99-107); CREATININE 0.74 MG/DL (0.60-1.10); GLUCOSE 100 MG/DL (70-104); POTASSIUM 3.7 MMOL/L (3.5-5.1); SODIUM 138 MMOL/L (135-145); TOTAL CARBON DIOXIDE 27.1 MMOL/L (24-32); TOTAL PROTEIN 6.1 G/DL (6.4-8.2); eGFR > 90 ML/MIN
[2021-11-06 06:17] LABS: ALANINE AMINOTRANSFERASE < 6 U/L (12-78)
--- NOTE | 2021-11-06 06:20 | NUR ---
Patient in room ZACK 354. I have received report from AVIVA Riley and had the opportunity to ask questions and assume patient care.
--- NOTE | 2021-11-06 06:23 | NUR ---
Student documentation: I have reviewed and agree with all interventions, assessments performed and documented by ALVARO CHICAS. Addendum: 11/06/21 at 0631 by Rosemary Mcintosh RN ALVARO MONTEMAYOR
--- NOTE | 2021-11-06 06:24 | NUR ---
Student Medication Administration: For this medication-pass time frame, all medication were reviewed, dispensed, administered and documented per hospital policy by ALVARO CHICAS. Addendum: 11/06/21 at 0630 by Rosemary Mcintosh RN ALVARO MONTEMAYOR
--- NOTE | 2021-11-06 06:24 | NUR ---
Problems reprioritized. Patient report given, questions answered & plan of care reviewed with KAUSHAL RN.
--- NOTE | 2021-11-06 06:25 | NUR ---
Problems reprioritized. Patient report given, questions answered & plan of care reviewed with RN Julia.
[2021-11-06 06:30] VITALS: BP 156/76
[2021-11-06 06:36] LABS: APTT 28 SECONDS (22-32)
[2021-11-06] MEDS: K and/or MAG REPLACEMENT MC SCH ×2 (07:01→20:00)
[2021-11-06] MEDS: docusate sod 100mg capsule PO SCH ×2 (07:01→20:00)
[2021-11-06] MEDS: aspirin 81mg tab.chew PO SCH (07:55)
[2021-11-06] MEDS: tamsulosin 0.4mg capsule PO SCH (07:55)
[2021-11-06] MEDS: gabapentin 300mg capsule PO SCH ×2 (07:55→19:43)
[2021-11-06] MEDS: metoprolol tartrate 25mg tablet PO SCH ×2 (07:56→19:49)
[2021-11-06] MEDS: hydrocortisone 1% cream 28gm TP SCH ×2 (07:56→19:45)
--- NOTE | 2021-11-06 10:48 | NUR ---
Initial: Pt admitted w/ abd pain and liver abscess, w/ hx of recent cholecystectomy per EMR, currently has JOSE drain to R abd. Pt on Heart Healthy diet w/ avg intake 65% of meals partially meeting needs. Recommend liberalizing to Regular diet as well as Smoothies TID for additional calories/protein. LBM 3/ receiving routine and PRN bowel care. Will continue to monitor. Recs: 1. Liberalize to Regular diet if MD agreeable 2. Smoothies TIDWM 3. Bowel care per rx 4. Weekly wts Addendum: 11/06/21 at [address] Amended: Links added.
[2021-11-06 11:00] VITALS: BP 118/67
--- NOTE | 2021-11-06 18:40 | NUR ---
Problems reprioritized. Patient report given, questions answered & plan of care reviewed with AVIVA Smith.
[2021-11-06 19:00] VITALS: BP 155/81
[2021-11-06] MEDS: HYDROcodone/acetaminophen 10/325mg tab PO PRN (19:43)
[2021-11-06] MEDS: temazepam 15mg capsule PO PRN (20:59)
[2021-11-06] MEDS ORDERED: warfarin 3mg tablet PO ONE (21:00)
[2021-11-07] VITALS: BP 138/73
[2021-11-07] MEDS: piperacillin/tazo 3.375gm/50ml 50 ML IV SCH (03:51)
[2021-11-07] MEDS: normal saline 1000ml 1,000 ML IV SCH (03:52)
--- NOTE | 2021-11-07 06:36 | NUR ---
Problems reprioritized. Patient report given, questions answered & plan of care reviewed with Bahman CHICAS.
--- NOTE | 2021-11-07 06:39 | NUR ---
Patient in room ZACK 354. I have received report from AVIVA CASEY and had the opportunity to ask questions and assume patient care.
[2021-11-07 06:45] LABS: APTT 30 SECONDS (22-32)
[2021-11-07 07:00] VITALS: BP 152/81
[2021-11-07] MEDS: K and/or MAG REPLACEMENT MC SCH (08:00)
[2021-11-07] MEDS: docusate sod 100mg capsule PO SCH (08:00)
[2021-11-07] MEDS: aspirin 81mg tab.chew PO SCH (08:08)
[2021-11-07] MEDS: tamsulosin 0.4mg capsule PO SCH (08:10)
[2021-11-07] MEDS: metoprolol tartrate 25mg tablet PO SCH (08:12)
[2021-11-07] MEDS: gabapentin 300mg capsule PO SCH (08:14)
[2021-11-07] MEDS: hydrocortisone 1% cream 28gm TP SCH (08:15)
--- NOTE | 2021-11-07 10:02 | NUR ---
Mona PICC RN Dolly the PICC RN on her way
--- NOTE | 2021-11-07 10:30 | NUR ---
PICC RN Dolly at patient's bedside placing PICC. Will administer IVANZ when PICC placed.
[2021-11-07] MEDS ORDERED: ertapenem sod inj 1 GM in normal saline 100ml IV soln 100 ML IV SCH (10:45)
[2021-11-07] MEDS ORDERED: ertapenem sod inj 1 GM in normal saline 100ml IV soln 110 ML IV SCH (10:45)
[2021-11-07] MEDS ORDERED: LACT1CAP26 PO (10:51)
[2021-11-07 11:06] VITALS: BP 134/69
--- NOTE | 2021-11-07 11:40 | NUR ---
Student Medication Administration: For this medication-pass time frame 2754-2074, all medications were reviewed,administered and documented per hospital policy by Alexandra Hamm. Student documentation:I have reviewed and agree with all interventions, assessments performed and documented by Alexandra Hamm.
[2021-11-07 13:48] LABS: BASOPHILS % (AUTO) 0.2 % (0-1); EOSINOPHILS # (AUTO) 0.2 X10'3 (0-0.9); EOSINOPHILS % (AUTO) 2.2 % (0-6); HEMATOCRIT 27.7 % (42.0-52.0); HEMOGLOBIN 8.7 g/dl (14.0-17.9); LYMPHOCYTES # (AUTO) 2.1 X10'3 (1.1-4.8); MEAN CORPUSCULAR HEMOGLOBIN 25.1 PG (27.0-31.0); MEAN CORPUSCULAR HGB CONC 31.4 g/dL (33.0-36.5); MEAN PLATELET VOLUME 6.4 FL (7.4-10.4); MONOCYTES # (AUTO) 1.1 X10'3 (0-0.9); MONOCYTES % (AUTO) 10.4 % (2-12); NEUTROPHILS # (AUTO) 6.9 X10'3 (1.8-7.7); NEUTROPHILS % (AUTO) 67.2 % (42-75); PLATELET COUNT 544 X10'3 (140-440); RED BLOOD COUNT 3.46 X10'6 (4.70-6.10); RED CELL DISTRIBUTION WIDTH 14.7 % (11.5-14.5); WHITE BLOOD COUNT 10.4 X10'3 (4.5-11.0)
--- NOTE | 2021-11-07 14:31 | NUR ---
Patient appears to be frustrated wanting to go home. Explained to patient that we are waiting for insurance authorization and for next appointment time. Patient cussing and mumbling under his breath. Spoke to Kylie PISANO which stated the same. Patient and spouse agreeable to have discharge teaching. Discussed with patient and spouse discharge teaching and new prescription and JOSE drain care. Patient and spouse verbalizes understanding of all teaching. Pain med will be transcribed to patient's preferred pharmacy by Dr. Quintana.
[2021-11-07] MEDS: HYDROcodone/acetaminophen 10/325mg tab PO PRN (14:44)
--- NOTE | 2021-11-07 15:50 | NUR ---
Patient dc'd with all personal belongings with . Patient aware his pain prescription was transcribed to [facility] on [address].
[2021-11-07] MEDS ORDERED: HYDR-3965 PO (17:21)
--- NOTE | 2021-11-07 17:47 | NUR ---
Notified by community health worker that patient's spouse called stating patient's pain meds have not been transmitted to pharmacy. Notified Dr. Quintana, Dr. Quintana did transmit order. Spouse stated to not call her back if it was already done.
[2021-11-07] MEDS ORDERED: warfarin 3mg tablet PO ONE (21:00)
== END 2021-11-07 15:50 | disposition home health service (06) | DRG 871 ==
LOC: ER 17:24 → ED HOLD 22:30 → SUR 3N 23:59
PROVIDERS: ADMIT Internal Medicine; ATTEND Family Medicine
PROC: BW211ZZ Computerized Tomography (CT Scan) of Abdomen and Pelvis using Low Osmolar Contrast (ICD-10-PCS; 2021-11-02)
PROC: 0F9130Z Drainage of Right Lobe Liver with Drainage Device, Percutaneous Approach (ICD-10-PCS; principal; 2021-11-03)
PROC: 02HV33Z Insertion of Infusion Device into Superior Vena Cava, Percutaneous Approach (ICD-10-PCS; 2021-11-07)
PROC: B548ZZA Ultrasonography of Superior Vena Cava, Guidance (ICD-10-PCS; 2021-11-07)
DX: A41.9 Sepsis, unspecified organism (principal); K75.0 Abscess of liver; D68.9 Coagulation defect, unspecified; E87.1 Hypo-osmolality and hyponatremia; Z20.822 Contact with and (suspected) exposure to COVID-19; I48.91 Unspecified atrial fibrillation; E78.00 Pure hypercholesterolemia, unspecified; E78.5 Hyperlipidemia, unspecified; F41.9 Anxiety disorder, unspecified; M10.9 Gout, unspecified; I10 Essential (primary) hypertension; N40.0 Benign prostatic hyperplasia without lower urinary tract symptoms; Z79.01 Long term (current) use of anticoagulants; Z90.49 Acquired absence of other specified parts of digestive tract
CPT/HCPCS: 36415; 36569; 49406; 71045; 74177; 76942; 80053; 81001; 82330; 83605; 84145; 85007; 85025; 85610; 85730; 87040; 87070; 87077; 87081; 87186; 87635; 90732; 96365; 96368; 96375; 97116; 97161; 97530; 99152; 99153; 99285; C9803; G0378; J0780; J1335; J2250; J2270; J2405; J2543; J2765; J3010; J3370; J3430; J3490; J7030; Q9967

== ENCOUNTER 2022-01-16 06:29 | Day surgery (SDC) | payer MEDICARE ==
[2022-01-16] VITALS (30 sets, daily range): BP systolic 99–136; BP diastolic 57–88
[~2022-01-16] VITALS: Ht 177.8 cm; Wt 80.0 kg
[~2022-01-16 06:29] MED LIST changes: +DUTA0.5C36 PO; +GABA300C PO; +LACT1CAP26 PO; -LOPE2CAP PO; -ONDA8TAB13 PO; -gabapentin capsule PO
[2022-01-16] MEDS ORDERED: ALPR0.255 PO (07:09)
[2022-01-16] MEDS ORDERED: WARF4TAB69 PO (07:09)
[2022-01-16] MEDS ORDERED: CALC-1215 PO (07:11)
[2022-01-16] MEDS ORDERED: Vitamin B12 (07:11)
[2022-01-16] MEDS ORDERED: Colace (07:11)
--- NOTE | 2022-01-16 07:15 | NUR ---
Pt has mid line PICC to right arm. Aspirated blood and flushed with NaCl. Labs drawn from PICC line, port flushed with NaCl and attached to IV solution.
[2022-01-16 07:35] LABS: BASOPHILS # (AUTO) 0.1 X10'3 (0-0.2); BASOPHILS % (AUTO) 0.9 % (0-1); EOSINOPHILS # (AUTO) 0.1 X10'3 (0-0.9); EOSINOPHILS % (AUTO) 0.8 % (0-6); HEMATOCRIT 33.2 % (42.0-52.0); HEMOGLOBIN 10.4 g/dl (14.0-17.9); LYMPHOCYTES # (AUTO) 2.4 X10'3 (1.1-4.8); LYMPHOCYTES % (AUTO) 18.9 % (21-51); MEAN CORPUSCULAR HEMOGLOBIN 23.8 PG (27.0-31.0); MEAN CORPUSCULAR HGB CONC 31.3 g/dL (33.0-36.5); MEAN PLATELET VOLUME 6.4 FL (7.4-10.4); MONOCYTES # (AUTO) 1.3 X10'3 (0-0.9); MONOCYTES % (AUTO) 10.1 % (2-12); NEUTROPHILS # (AUTO) 8.8 X10'3 (1.8-7.7); NEUTROPHILS % (AUTO) 69.3 % (42-75); PLATELET COUNT 541 X10'3 (140-440); RED BLOOD COUNT 4.37 X10'6 (4.70-6.10); RED CELL DISTRIBUTION WIDTH 16.5 % (11.5-14.5); WHITE BLOOD COUNT 12.7 X10'3 (4.5-11.0)
[2022-01-16] MEDS ORDERED: LIDOcaine 1%/PF 5ML 10 MG/ML VIAL ONE ×2 (08:14→08:31)
[2022-01-16] MEDS ORDERED: midazolam 1 mg/ML 2ml injection ONE (08:21)
[2022-01-16] MEDS ORDERED: fentaNYL/PF 50MCG/1 ML 2ML syringe ONE (08:21)
[2022-01-16] MEDS ORDERED: silver nitrate applicator stick TP ONE (10:20)
== END 2022-01-16 11:55 | disposition home or self-care (01) ==
LOC: SSTAY O 06:29
PROVIDERS: ATTEND Radiology Vascular & Interventional Radiology
DX: N28.1 Cyst of kidney, acquired (principal); K75.0 Abscess of liver; Z72.89 Other problems related to lifestyle; Z98.890 Other specified postprocedural states; Z90.49 Acquired absence of other specified parts of digestive tract; Z79.899 Other long term (current) drug therapy; Z79.01 Long term (current) use of anticoagulants
CPT/HCPCS: 36415; 49405; 85025; 85610; 87070; 87077; 87186; 99152; 99153; J2250; J3010; J3490; 75989